=== PATIENT | male | born 1940 | race Caucasian/White ===

== ENCOUNTER 2024-09-16 17:17 | Inpatient (IN) | payer MEDICARE, OTHER, SELFPAY ==
[2024-09-16] VITALS (9 sets, daily range): BP systolic 115–150; BP diastolic 60–102; BMI 32.6
--- NOTE | 2024-09-16 11:56 | W.PN.CARDCBS ---
Today's Communication / Plan
-
Aspirin 243mg precath
LHC today
start statin
GDMT for cardiomyopathy
Impression / Plan
-
This is the H&P summary.
Full H&P scanned into chart.
PCP: Raquel Correia MD
CDY: Jaylen Webster MD
HPI: This is an 84 y/o white male, PMH sig for DM, CKD3a, HLD, HTN, prostate cancer.
Seen in outpt cardiology setting on 09/13 for 1 week history intermittent chest pain radiating to LUE, associated dyspnea, lightheadedness, belching. EKG indicated that he likely suffered an acute MS earlier in the week, with anterior Q waves and
marked anterolateral ST/T wave abnormalities, for which he had not sought urgent medical attention. He was sent to [facility] ER from the office.
First HS troponin was peak at 2165, with corresponding CK 237/MB 13.8. Started on IV Heparin, aspirin. Transferred today for [facility].
Echo 09/13- LVEF 40-45%, distal septal/apical/inferoapical HK
IMPRESSION:
Subacute Anterior MS
Cardiomyopathy
HTN
HLD
Elevated transaminase
DM
CKD3a
Prostate Cancer w/prostatectomy (07/2023)
Meniere's Disease/hearing loss
Cervical disc disease C6-C7 w/radiculopathy
PLAN:
Subacute Anterior MS- likely 1 week ago but delayed treatment
Echo now with cardiomyopathy and decreased EF 40-45%
Started aspirin 81mg- will give 243mg on arrival if not fully loaded
[facility] today
atenolol stopped for toprol xl 25m BID at [facility]- will continue here
Gentle hydration post cath, repeat creat in AM post dye load
Will need GDMT for cardiomyopathy/acute systolic HFrEF- start dapagliflozin 10/daily
Check lipid profile and start high intensity statin therapy- elevated transaminase likely d/t MS
baseline AST 20s, ALT 10s- will repeat in AM. Stop RYR
HgbA1C 7.2%- will need med/insulin adjustment per PCP, start dapagliflozin as noted
Followup w/Dr. Webster at d/c
Progress Note - Waitstaff
Subjective
Date of Service: September 16, 2024
[2024-09-16 12:45] LABS: Glucose - Point of Care 133 mg/dl (70-99)
[2024-09-16] MEDS: LOW STRENGTH ASPIRIN 243 MG PO (14:00)
[2024-09-16] MEDS: ZOFRAN 4 MG IV (14:18)
[2024-09-16 16:33] LABS: ACT-LR - POC 226 Seconds (116-155)
--- NOTE | 2024-09-16 17:00 | PTCARENOTE ---
received patient from computer laboratory technician to room 2256. pt oriented to room and unit. pt brought to bedside. Pt AAOX3. denies chest pain at this time. SR on telemetry heart rate in 60s. pulses palpable. trace lower extremity edema. pt on room air, sat
98%. lung sounds diminished in bases. pt reports mild intermittent nausea. hypoactive bowel sounds. poor appetite. denies urge to void at this time. left arm skin tear noted from [place]. labs drawn and send. admission questions went over with
patient. see worklist for full nursing assessment and interventions.
--- NOTE | 2024-09-16 17:40 | ITS.CL.CATH ---
Quality Improvement Engineer - Catheterization
Cardiac Catheterization
Procedure Report:
LEFT HEART CATHETERIZATION
Date of Procedure: September 16, 2024
Procedures performed:
1: Coronary angiography
2: Left ventricular hemodynamic assessment
Primary Care Physician: Dr. Raquel Correia
Primary Abrasive Mixer Helper: Dr. Jaylen Webster
INDICATION: The patient is an 84-year-old man with a past medical history significant for longstanding diabetes, hypertension and dyslipidemia who presents with a history of having chest pain approximately 9 days ago. On his initial evaluation in
our office last Monday his EKG showed serial changes consistent with an evolving anterior wall MS and he was admitted to [facility] where cardiac enzymes were positive. Echo performed showed depressed LV systolic function. He has been
pain-free over the weekend on a heparin drip and now referred for coronary angiography.
ACCESS: The patient was prepped and draped in usual sterile fashion. A 6 Yi sheath was placed in the right radial artery using the Seldinger over the wire technique.
HEMODYNAMIC FINDINGS (mmHg):
LV(s/d,EDP): 136/12, 23
Ao(s/d,m): 136/63, 86
ANGIOGRAPHIC FINDINGS:
Single-plane Left Ventriculography in SIU Projection: Not done. LV ejection fraction 40 to 45% by echo performed at [facility].
Coronary Angiography:
Dominance: Right
Left Main: Normal, short.
Left Anterior Descending: The left anterior descending artery is a medium to large caliber vessel that gives rise to 1 major diagonal branch. The proximal LAD has a smooth 70% stenosis. The major diagonal branch is patent with normal flow and
appears to be a reasonable surgical target. Just after the diagonal branch takeoff there is a preocclusive hazy 95% mid LAD stenosis with WU II flow in the apical LAD. The distal LAD has moderate luminal irregularities but appears to be a good
surgical target.
Left Circumflex: The left circumflex is a large-caliber nondominant system that gives rise to 2 major obtuse marginal branches. The first obtuse marginal branch has a proximal 80 to 90% stenosis with disease that goes back to the ostium. The mid
and distal vessel have moderate luminal irregularities and appear to be a reasonable surgical target. The distal OM is a relatively large vessel that is widely patent with normal flow and at worst a mid 30% stenosis.
Right Coronary: The right coronary artery is a medium caliber dominant vessel that gives rise to a medium caliber posterior descending artery and small PLV branch system. The mid right coronary artery has a smooth 50 to 60% stenosis. The distal
right coronary artery has a 80% stenosis before the distal bifurcation. Despite this there is normal distal flow.
Fluoroscopy Time (min): 3.8
Radiation Dose (mGy): 379
DAP (Gy.cm2): 25
Closure device: None. A TR band was applied for hemostasis at the right wrist.
Complications: None.
ASSESSMENT:
1: Three-vessel obstructive coronary artery disease with a clear culprit being the mid LAD lesion.
2: Elevated left ventricular filling pressures.
CONCLUSIONS and RECOMMENDATIONS:
1: CT surgical evaluation for CABG given his LV dysfunction, insulin-dependent diabetes, and multivessel obstructive coronary disease. Ideally he would receive a AMATO to the LAD with grafts to the PDA, OM1, and possibly the major diagonal branch.
2: If the patient is felt to be a poor surgical candidate or refuses surgery I would consider multivessel intervention. This would require at least 5 stents.
3: Medical therapy for recent MS, coronary artery disease, hypertension, hyperlipidemia, and diabetes mellitus.
Cassidy Berkowitz M.D.
Copy to: Dr. Raquel Correia
[2024-09-16 17:50] LABS: Hematocrit 37.6 % (39.0-52.0); Mean Corp Hgb Conc. 34.6 g/dL (33.0-37.0); Mean Corpuscular Hgb 31.9 pg (27.0-31.0); Mean Corpuscular Volume 92.4 fL (80.0-94.0); Mean Platelet Volume 10.5 fL (7.4-10.4); Platelet Count 193 10^3/uL (130-400); Red Blood Cell Count 4.07 10^6/uL (4.70-6.10); Red Cell Dist. Width 12.7 % (11.5-14.5); White Blood Cell Count 7.9 10^3/uL (4.8-10.8)
[2024-09-16 18:02] LABS: APTT 129.2 Sec (23.4-35.0)
[2024-09-16] MEDS: GLUCOTROL 5 MG PO (18:07)
[2024-09-16] MEDS: LIPITOR 40 MG PO (18:07)
--- NOTE | 2024-09-16 18:11 | CONSULT.CT ---
Addendum entered and electronically signed by Zbigniew William MD 09/18/24 06:44:
I saw and examined the patient.
The OCCUPATIONAL HEALTH NURSE MANAGER's note was reviewed and I agree with the note.
Comment:
I met with Mr. Souza at the bedside. We reviewed his HPI. He tells me he had approximately 1 week of chest pain that became progressively worse which lead him to his PCP who referred him to cardiology who immediately referred him to the ED. He
was found to have an NSTEMI and underwent LHC which revealed multi vessel CAD. I discussed and illustrated his lesions and conduct for surgery. We reviewed the risks and benefits. Despite his age, he is quite functional, and I believe he would
benefit from complete revascularization. Plan is for CABG + SAILAJA Clip with me on . All questions were answered to his satisfaction and to the best of my ability, consent was obtained.
Original Note:
Consultation
-
Date/Time Consultation Requested: 09/16/24
Date/Time Consultation Performed: 09/16/24
Requesting Provider: Dr. Merritt Berkowitz
Performing Provider: Deisy AVILA for Oziel Bertram MYRICK
Reason for Consultation: CABG evaluation
Patient History
Physicians
Family Physician: Raquel Correia
Outpatient Street Cleaning Equipment Operator: Troy Santiago MD
Inpatient Street Cleaning Equipment Operator: Merritt Berkowitz MD>[facility] consult
History of Present Illness
84-year-old male with past medical history significant for hypertension, hyperlipidemia, diabetes, class I obesity, CKD 3a, was seen in outpatient cardiology 09/13 for complaint of 1 week history of 3 episodes midsternal chest pain
radiating to left upper extremity, associated with dyspnea. Ruled in for [facility] by ECG with anterior Q waves and marked anterolateral ST/T wave abnormalities, for which he had not sought urgent medical attention. Patient sent to [facility]
where First HS troponin was peak at 2165, with corresponding CK 237/MB 13.8. Patient was transferred to [facility] on 09/16/2024 for left heart cath which reported triple-vessel coronary disease. CT surgery is consulted for CABG evaluation.
Pertinent negatives: Denies CVA/TIA, asthma/COPD, hepatitis, surgery/radiation to thorax, lower extremity vein stripping, dysphagia
Past Medical History
Past Medical History: Cancer (Prostate cancer w/ prostatectomy 2023), GERD, HTN, Hypercholesterolemia, NIDDM (20+ years), Renal Insufficiency (CKD3a) and Other (M�ni�re's disease with hearing loss; DJD bilateral knees, C 6-7 disc disease with
radiculopathy, right lower extremity phlebitis (in his 20s); class I Obesity; chronic constipation)
Past Surgical History
Past Surgical History: Orthopedic (Left rotator cuff repair) and Other (Vocal cord injections; benign polypectomy)
Family History
Mother: at Age (96)
Father: at Age
Family Medical History: CAD
Social History
Alcohol: None
Drug: None
Tobacco: Non-Smoker
Personal:
Living: With Spouse
Employment: Retired ([employer])
Allergies
Allergy/AdvReac Type Severity Reaction Status Date / Time
atorvastatin [From Lipitor] Allergy Rash Verified 09/16/24 12:29
ciprofloxacin [From Cipro] Allergy Rash Verified 09/16/24 12:29
ezetimibe [From Zetia] Allergy Rash Verified 09/16/24 12:29
morphine Allergy severe Verified 09/16/24 12:29
Nausea /
Vomiting
simvastatin [From Zocor] Allergy Rash Verified 09/16/24 12:29
sitagliptin [From Januvia] Allergy myalgia,joint Verified 09/16/24 12:29
pain
Sulfa (Sulfonamide Allergy Rash/vomiti Verified 09/16/24 12:29
Antibiotics) ng
sulfamethoxazole Allergy Hives Verified 09/16/24 12:29
[From Bactrim]
trimethoprim [From Bactrim] Allergy Hives Verified 09/16/24 12:29
Home Medications
�Medication �Instructions �Recorded �Confirmed �Type
acetaminophen 650 mg 1,300 mg PO Q12H PRN pain 09/16/24 09/16/24 History
tablet,extended release (Tylenol
Arthritis Pain)
amlodipine 5 mg tablet 5 mg PO BID 09/16/24 09/16/24 History
atenolol 25 mg tablet 25 mg PO BID 09/16/24 09/16/24 History
calcium carbonate (Calcium 600) 1,200 mg PO DAILY 09/16/24 09/16/24 History
celecoxib 200 mg capsule 200 mg PO DAILY 09/16/24 09/16/24 History
cholecalciferol (vitamin D3) 50 50 mcg PO DAILY 09/16/24 09/16/24 History
mcg (2,000 unit) capsule
cyanocobalamin (vitamin B-12) 1,000 mcg PO DAILY 09/16/24 09/16/24 History
1,000 mcg tablet (Vitamin B-12)
diazepam 2 mg tablet 2 mg PO HS PRN vertigo 09/16/24 09/16/24 History
famotidine 40 mg tablet 40 mg PO BID 09/16/24 09/16/24 History
ferrous sulfate 27 mg iron tablet 27 mg PO DAILY 09/16/24 09/16/24 History
glipizide 10 mg tablet 10 mg PO DAILY 09/16/24 09/16/24 History
glipizide 5 mg tablet 5 mg PO HS 09/16/24 09/16/24 History
hydrochlorothiazide 12.5 mg tablet 12.5 mg PO DAILY 09/16/24 09/16/24 History
insulin aspart U-100 100 unit/mL 5 unit SC HS 09/16/24 09/16/24 History
(3 mL) subcutaneous pen
insulin degludec 100 unit/mL (3 14 unit SC DAILY 09/16/24 09/16/24 History
mL) subcutaneous pen (Tresiba
FlexTouch U-100 insulin)
loratadine 10 mg tablet 10 mg PO HS 09/16/24 09/16/24 History
pioglitazone 30 mg tablet 30 mg PO HS 09/16/24 09/16/24 History
polyethylene glycol 3350 17 4 g PO DAILY 09/16/24 09/16/24 History
gram/dose oral powder
psyllium husk 3.4 gram/5.4 gram 1 tsp PO DAILY 09/16/24 09/16/24 History
oral powder (Metamucil)
red yeast rice 600 mg tablet 1,200 mg PO BID 09/16/24 09/16/24 History
solifenacin 10 mg tablet 10 mg PO DAILY 09/16/24 09/16/24 History
triamcinolone acetonide 0.1 % 1 applic topical BID 09/16/24 09/16/24 History
topical cream
Review of Systems
-
History Source: Patient and Transfer Record
General: Reports No Symptoms
HEENT: Reports Other (Eating less)
Respiratory: Reports No Symptoms
Cardiac: Reports Chest Pain (Currently resolved)
Abdomen/GI: Reports Nausea
: Reports No Symptoms
Musculoskeletal: Reports Joint Pain (Bilateral knees)
Skin: Reports No Symptoms
Neurological: Reports No Symptoms
Vascular: Reports No Symptoms
Physical Exam
Vital Signs
Temp 98.3 F 09/16/24 17:27
Temp route: Oral 09/16/24 17:27
Pulse 65 09/16/24 17:16
Resp Rate 18 09/16/24 17:27
Blood pressure 140/61 09/16/24 17:16
Blood pressure extremity used: Left upper arm 09/16/24 17:27
Position: Lying 09/16/24 17:27
MAP (cuff-James Monitor) 84 09/16/24 17:16
SaO2 98 09/16/24 17:27
Oxygen Mode of Delivery Room air 09/16/24 17:27
Actual Weight 102.9 kg 09/16/24 12:28
Body Mass Index (BMI) 32.6 09/16/24 12:28
Labs
03/31/25 17:43
Diagnostic Studies
Left heart catheterization (right radial by Dr. Berkowitz) 09/16:
Left Main: Normal, short.
Left Anterior Descending: Proximal LAD has a smooth 70% stenosis. The major diagonal branch is patent with normal flow and appears to be a reasonable surgical target. Just after the diagonal branch takeoff there is a preocclusive hazy 95% mid LAD
stenosis with WU II flow in the apical LAD. The distal LAD has moderate luminal irregularities but appears to be a good surgical target.
Left Circumflex: Proximal OM1 80-90% stenosis with disease that goes back to the ostium. The mid and distal vessel have moderate luminal irregularities and appear to be a reasonable surgical target. The distal OM is a relatively large vessel that
is widely patent with normal flow and at worst a mid 30% stenosis.
Right Coronary: 50-60% mid RCA stenosis. The distal right coronary artery has a 80% stenosis before the distal bifurcation.
Echo 09/13:
LVEF 40-45%, distal septal/apical/inferoapical HK
Exam
General: Well Developed, Well Nourished, No Apparent Distress and Comfortable
HEENT: Normocephalic, Anicteric, Moist Mucous Membranes and PERRLA
Neck: Trachea Midline
Respiratory: Clear
Cardiac: S1/S2 and Regular Rhythm
GI: Soft, Non Tender, Non Distended and Normal Bowel Sounds
Rectal: Deferred by Provider
Skin: Warm and Dry
Neuro: AO x 3, No Motor Deficits and Nonfocal/Grossly Intact
Extremities: Pulses (+2/4 DP pulses B/L)
Lymph: No Lymphadenopathy
Psych: Calm
Assessment / Plan
-
84-year-old male transferred from [facility] on 09/16/24 with subacute anterior STEMI likely 1 week prior to admission. Left heart cath reveals triple-vessel coronary disease and ischemic cardiomyopathy with a EF of 40-45%. Past medical
history significant for hypertension, hyperlipidemia, obesity, diabetes, CKD 3A.
-Surgeon to review imaging and discuss risk-benefit with patient and family
-Preop cardiac surgery diagnostics ordered
-Would benefit from diabetes OCCUPATIONAL HEALTH NURSE MANAGER management while hospitalized
Data Reviewed
-
EKG: Report Reviewed by me and Discussed with Physician
Home Delivery Driver: Report Reviewed by me and Discussed with Physician
Echo: Discussed with Physician
Radiology: Report Reviewed by me and Discussed with Physician
Labs: Labs Reviewed by me and Discussed with Physician
Old Records: Reviewed
--- NOTE | 2024-09-16 18:44 | PTCARENOTE ---
LORETTA AZAR stated okay to draw type and screen in AM since labs were already drawn and sent.
[2024-09-16] MEDS: HEPARIN 25000 UNITS/250 ML IV (19:56)
[2024-09-16] MEDS: NORVASC 5 MG PO (20:00)
[2024-09-16] MEDS: TOPROL XL 25 MG PO (20:00)
[2024-09-16] MEDS: PEPCID 40 MG PO (20:00)
[2024-09-16] MEDS: CLARITIN 10 MG PO (21:39)
[2024-09-16] MEDS: ACTOS 30 MG PO (21:39)
[2024-09-16 21:43] LABS: Glucose - Point of Care 116 mg/dl (70-99)
--- NOTE | 2024-09-16 22:52 | PTCARENOTE ---
Patient received from previous RN resting in the bed. Denies chest pain. Right radial cath site with gauze and tegaderm C/D/I. Radial pulse palpable. SR with first degree AV block on tele. Heparin gtt infusing at 1000units/hr. Oxygen saturation 94%
on room air. Patient offers no complaints at this time. Plan of care discussed. Call izaguirre within reach. Care ongoing
[2024-09-17] VITALS (10 sets, daily range): BP systolic 130–150; BP diastolic 57–90; BMI 31.6
[2024-09-17 03:38] LABS: Hematocrit 35.7 % (39.0-52.0); Hemoglobin 12.2 g/dL (13.0-18.0); INR 1.09; Mean Corp Hgb Conc. 34.2 g/dL (33.0-37.0); Mean Corpuscular Volume 93.7 fL (80.0-94.0); Mean Platelet Volume 11.3 fL (7.4-10.4); PT 14.4 Sec (11.4-14.6); Platelet Count 176 10^3/uL (130-400); Red Blood Cell Count 3.81 10^6/uL (4.70-6.10); Red Cell Dist. Width 12.8 % (11.5-14.5)
[2024-09-17 03:39] LABS: APTT 47.4 Sec (23.4-35.0)
[2024-09-17 03:52] LABS: ALT (SGPT) 19 U/L (0-50); AST (SGOT) 31 U/L (17-59); Albumin 3.7 g/dl (3.5-5.0); Alkaline Phosphatase 74 U/L (38-126); Blood Urea Nitrogen 24 mg/dl (9-20); Calcium 9.6 mg/dl (8.4-10.2); Carbon Dioxide 25 mmol/L (22-30); Chloride 107 mmol/L (98-107); Direct Bilirubin 0.3 mg/dl (0.0-0.4); Estimated Creatinine Clearance 60 ml/min; Glucose 118 mg/dl (70-99); HDL Cholesterol 45 mg/dl; LDL Cholesterol, Calculated 113 mg/dl; Magnesium 1.8 mg/dl (1.6-2.3); Potassium 4.2 mmol/L (3.5-5.1); Sodium 141 mmol/L (135-145); Total Bilirubin 1.7 mg/dl (0.2-1.3); Total Cholesterol 186 mg/dl (50-199); Total Protein 6.3 g/dl (6.3-8.2); Triglyceride 140 mg/dl (10-149); Very Low Density Lipoprotein 28 mg/dl (0-30); eGFR > 60.00
[2024-09-17 08:25] LABS: Glucose - Point of Care 136 mg/dl (70-99)
[2024-09-17] MEDS: NORVASC 5 MG PO ×2 (08:27→19:50)
[2024-09-17] MEDS: DETROL LA 4 MG PO (08:27)
[2024-09-17] MEDS: LOW STRENGTH ASPIRIN 81 MG PO (08:28)
[2024-09-17] MEDS: PEPCID 40 MG PO ×2 (08:28→19:51)
[2024-09-17] MEDS: GLUCOTROL 10 MG PO (08:28)
[2024-09-17] MEDS: TOPROL XL 25 MG PO ×2 (08:29→19:51)
[2024-09-17] MEDS: NOVOLOG FLEXPEN-MODERATE RESISTANCE SC ×3 (08:29→16:47)
[2024-09-17] MEDS: LANTUS 0.14 UNITS SC (08:30)
[2024-09-17 09:44] LABS: Glycohemoglobin (HgbA1c) 6.7 % (4.0-5.6)
[2024-09-17 11:32] LABS: APTT 62.9 Sec (23.4-35.0)
--- NOTE | 2024-09-17 11:45 | W.PN.CARDCBS ---
Addendum entered and electronically signed by Elliot Khoury MD 09/17/24 13:40:
Attending addendum: Patient seen and examined. PA note reviewed and findings confirmed by me. He has been feeling well. No chest pain. Poor appetite and chronic 'sensitive stomach'.
IMPRESSION:
-Multivessel coronary artery disease with subacute anterior wall myocardial infarction
-Ischemic cardiomyopathy
-Hypertension
-Hyperlipidemia
-Diabetes
RECOMMENDATIONS:
-Awaiting CT surgical evaluation
-Continue amlodipine 5 mg p.o. twice daily
-Toprol XL will increase to 50 mg p.o. twice daily with hold parameters
-Eventual ROGELIO/ARB given LV dysfunction and DM
Original Note:
Today's Communication / Plan
-
Continue aspirin, IV heparin, statin, Toprol, Norvasc
CT surgical evaluation underway
Diabetic STAFF RESPIRATORY THERAPIST consult
Impression / Plan
-
This is the H&P summary.
Full H&P scanned into chart.
PCP: Raquel Correia MD
CDY: Jaylen Webster MD
HPI: This is an 84 y/o white male, PMH sig for DM, CKD3a, HLD, HTN, prostate cancer.
Seen in outpt cardiology setting on 09/13 for 1 week history intermittent chest pain radiating to LUE, associated dyspnea, lightheadedness, belching. EKG indicated that he likely suffered an acute OK earlier in the week, with anterior Q waves and
marked anterolateral ST/T wave abnormalities, for which he had not sought urgent medical attention. He was sent to [facility] ER from the office.
First HS troponin was peak at 2165, with corresponding CK 237/MB 13.8. Started on IV Heparin, aspirin. Transferred today for [facility].
IMPRESSION:
Subacute Anterior OK
Ischemic cardiomyopathy, EF 40-45%
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
HTN
HLD
DM
CKD3a
Prostate Cancer w/prostatectomy (07/2023)
Meniere's Disease/hearing loss
Cervical disc disease C6-C7 w/radiculopathy
Echo 09/13- LVEF 40-45%, distal septal/apical/inferoapical HK
PLAN:
-Patient was admitted to [facility] initially with evidence of subacute anterior OK and transferred to [facility] for cardiac catheterization completed 09/16/2024. Cath showed three-vessel obstructive coronary disease with clear
culprit being mid LAD lesion.
-CT surgical evaluation underway
-Echo at [facility] with new EF 40 to 45%
-Continue aspirin, IV heparin
-Remains pain-free
-Continue Toprol (transitioned from atenolol while at [facility]), Norvasc
-Continue guideline directed medical therapy for cardiomyopathy/CHF. Holding on ROGELIO/ARB/ARNI/Aldactone at present given plans for upcoming surgery
-In sinus rhythm on review of telemetry overnight
-LDL 113. Continue Lipitor 40 mg every afternoon. LFTs were transiently elevated at [place], likely due to OK and improved
-Hemoglobin A1c 7.2%. Stop Actos. Would plan to start Farxiga when okay per surgery. diabetic STAFF RESPIRATORY THERAPIST consult
-Followup w/Dr. Webster, ATC at d/c
-d/w patient and family at bedside. d/w CT surgery STAFF RESPIRATORY THERAPIST
Progress Note - Strategy Specialist
Subjective
Date of Service: September 17, 2024
No pain or issues overnight
Objective
Labs:
09/17/24 02:05
09/17/24 02:05
Labs
Hgb 12.2 g/dL (13.0-18.0) L 09/17/24 02:05
Hct 35.7 % (39.0-52.0) L 09/17/24 02:05
Plt Count 176 10^3/uL (130-400) 09/17/24 02:05
PT 14.4 Sec (11.4-14.6) 09/17/24 02:05
INR 1.09 09/17/24 02:05
APTT 62.9 Sec (23.4-35.0) H 09/17/24 11:08
Sodium 141 mmol/L (135-145) 09/17/24 02:05
Potassium 4.2 mmol/L (3.5-5.1) 09/17/24 02:05
BUN 24 mg/dl (9-20) H 09/17/24 02:05
Creatinine 1.1 mg/dL (0.7-1.3) 09/17/24 02:05
Glucose 118 mg/dl (70-99) H 09/17/24 02:05
Vital Signs and I&O:
Vital Signs
Temp Pulse Resp BP Pulse Ox
97.9 F 70 18 131/65 98
09/17/24 07:40 09/17/24 07:39 09/17/24 07:40 09/17/24 07:39 09/17/24 07:40
Vital Signs
Temp Pulse Resp BP Pulse Ox
97.9 F 70 18 131/65 98
09/17/24 07:40 09/17/24 07:39 09/17/24 07:40 09/17/24 07:39 09/17/24 07:40
Intake & Output
09/15/24 09/16/24 09/17/24 09/18/24
07:59 07:59 07:59 07:59
Intake Total 480 / 480
Balance 480 / 480
Physical Exam
Physical Exam
GEN: No distress, awake, alert, oriented x3
HEENT: supple, anicteric, mmm, EOMI
LUNGS: CTA bilaterally, no wheezes/rales
CV: Reg, S1/S2, no murmur
ABD: soft, BS+, NT/ND
EXT: No cyanosis, clubbing, Edema
NEURO: Gross non-focal
SKIN: warm, pink, dry. No rash. R wrist site c/d/i. thin skin. LUE dressing in place.
--- NOTE | 2024-09-17 12:25 | CM ---
Chart reviewed. Patient is independent of ADLS, lives with his in a 2 STH, 3 VINI, 0 DME has stair glide and walk in shower. Plan is for the patient to return home. CM to follow
--- NOTE | 2024-09-17 13:12 | W.PN.UPDATE ---
Update Note
Progress Note Update
Patient added for CABG with Dr. William on September. Consent obtained. Continue ongoing pre-op work up, STS risk score to follow.
[2024-09-17 14:14] LABS: Glucose - Point of Care 133 mg/dl (70-99)
--- NOTE | 2024-09-17 14:20 | PN.DE.MGMTRT ---
Insulin Management
- -
09/16/24 Diabetes Management Consult
Patient admitted 09/16 from [facility] for chest pain. PMH Prostatitis, malignant neoplasm prostate, neuropathy, elevated LFT's, HCL, Menieres disease, sb CKD. Prior to admission was taking Actos 30 mg @ HS, degludec 14 units daily, 10 mg
Glipizide in AM and 5 mg @ HS. ~ 1 1/2 weeks ago was started on aspart before dinner.
Patient is awake alert and oriented able to discuss diabetes care. Family at bedside and supportive. Patient states he sees Dr. Segura, endocrine for ongoing diabetes management. He has a Liz CGM. He states since starting the aspart pre
dinner has had several low blood sugars.
Currently receiving glipizide 10 mg in AM and 5 mg with dinner, lantus 14 units in AM and moderate corrective insulin. Glucose range 116 to 136. Will make no change to current regimen.
Patient for CABG with Dr. William 09/19.
Will not restart Actos.
Discussed with nurse.
Will follow.
Diabetes History
- -
Type of Diabetes: 2 requiring insulin
Pre-Admission Diabetes Regimen
09/17/24
02:05
Creatinine 1.1
Lab Results
Hemoglobin A1c 6.7 % (4.0-5.6) H 09/17/24 02:05
Insulin Pump Settings
IP Diabetes Regimen
09/16/24 09/17/24 09/17/24
21:42 02:05 08:24
Glucose 118 H
POC Glucose 116 H 136 H
09/17/24
14:12
Glucose
POC Glucose 133 H
Meal type: Breakfast
Meal type: Dinner
Amount consumed: 75%
Amount consumed: 50%
Patient Education
--- NOTE | 2024-09-17 15:55 | WOUNDNOTE ---
[facility] RN note: Patient admitted for cardiac catheterization.
See H&P for complete history.
PMH:NIDDM,WI,CAD,HTN and Prostate cancer.
Wound Location and type/assessment: Patient admitted with: L arm skin care that he reports had on admission. Very fragile skin on forearm with bruising, small skin tear in center. L upper chest with dried up small skin tear. Nurse Eloise assisted
with care and confirmed that sacrum and heels are intact.
Appetite: Good.
Pressure redistribution devices in place: On Air mattress. Pillow under calves
Plan: Local wound care for skin tears.
Will confirm orders with hospitalist and updated nurse.
Updated care plan and will follow as needed.
Note to case management of equipment requested for discharge:None
Recommend follow up at wound care center upon discharge.
[2024-09-17 16:38] LABS: Glucose - Point of Care 107 mg/dl (70-99)
[2024-09-17] MEDS: LIPITOR 40 MG PO (16:54)
[2024-09-17] MEDS: HEPARIN 25000 UNITS/250 ML IV (16:54)
[2024-09-17] MEDS: GLUCOTROL 5 MG PO (16:54)
--- NOTE | 2024-09-17 17:32 | W.PN.UPDATE ---
Update Note
Progress Note Update
Procedure Type:�Isolated CABG
Perioperative Outcome Estimate %
Operative Mortality 3.05%
Morbidity & Mortality 9.59%
Stroke 1.28%
Renal Failure 2.71%
Reoperation 1.79%
Prolonged Ventilation 5.07%
Deep Sternal Wound Infection 0.291%
Long Hospital Stay (>14 days) 7.32%
Short Hospital Stay (<6 days)* 29.6%
Clinical Summary
Planned Surgery: Isolated CABG, Urgent, First cardiovascular surgery
Demographics: 84 year old, White, male, 103kg, 178cm, BMI: 32.5 kg/m�
Lab Values: Creatinine: 1.1 mg/dL, Hematocrit: 35.7%, WBC Count: 8 10�/�L, Platelet Count: 920089 cells/�L
PreOp Medications: Insulin diabetes control
Substance Abuse: Never smoker
Risk Factors / Comorbidities: Insulin-dependent Diabetes Mellitus, Hypertension
Coronary Artery Disease: 3 vessels diseased, Proximal LAD Stenosis >=70%, STEMI, ME: 1 to 7 Days
[2024-09-17 18:28] LABS: APTT 85.2 Sec (23.4-35.0)
--- NOTE | 2024-09-17 21:18 | PTCARENOTE ---
Received pt @ change of shift. AAOx3. VSS. Heparin gtt running @ 1400 units/hr through left forearm. Discussed plan of care for evening. Pt verbalized understanding. Call izaguirre within reach.
[2024-09-17 22:07] LABS: Glucose - Point of Care 120 mg/dl (70-99)
[2024-09-17] MEDS: CLARITIN 10 MG PO (22:08)
[2024-09-18 01:31] VITALS: BP 147/63
[2024-09-18 01:39] LABS: Hematocrit 36.5 % (39.0-52.0); Hemoglobin 12.7 g/dL (13.0-18.0); Mean Corp Hgb Conc. 34.8 g/dL (33.0-37.0); Mean Corpuscular Hgb 31.8 pg (27.0-31.0); Mean Corpuscular Volume 91.5 fL (80.0-94.0); Mean Platelet Volume 10.5 fL (7.4-10.4); Platelet Count 183 10^3/uL (130-400); Red Blood Cell Count 3.99 10^6/uL (4.70-6.10); Red Cell Dist. Width 12.7 % (11.5-14.5); White Blood Cell Count 7.8 10^3/uL (4.8-10.8)
[2024-09-18 01:53] LABS: APTT 99.4 Sec (23.4-35.0)
[2024-09-18 03:19] LABS: Blood Urea Nitrogen 26 mg/dl (9-20); Calcium 9.9 mg/dl (8.4-10.2); Carbon Dioxide 21 mmol/L (22-30); Chloride 107 mmol/L (98-107); Estimated Creatinine Clearance 51 ml/min; Glucose 99 mg/dl (70-99); Potassium 4.2 mmol/L (3.5-5.1); Sodium 142 mmol/L (135-145); eGFR 54.51
--- NOTE | 2024-09-18 04:33 | W.PN.CT ---
Today's Communication / Plan
-
Plan:
-Cont. current medical management per primary team
-Cont. current meds (ASA, Heparin gtt, Lipitor, Toprol XL, Insulin)
-Avoid ROGELIO-I, ARBs, CCB at least 48 hrs prior to CABG; placed Norvasc on hold
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
-For CABG/SAILAJA clip by Dr. William tomorrow, 09/19/24
-Will cont. to closely monitor
Assessment / Plan
-
Assessment:
-Subacute Anterior IN
-[place]
-Ischemic cardiomyopathy, EF 40-45%
-MV CAD by cath with culprit mid LAD lesion
-HTN
-HLD
-T2DM (hgb A1C 6.7, on insulin)
-Class 1 obesity (BMI 31.6)
-CKD3a
-Prostate Cancer S/P prostatectomy (07/2023)
-Meniere's Disease/hearing loss
-Cervical spine disease C6-C7 w/radiculopathy
-S/P vocal cord injection for laryngitis/hoarseness
-S/P Left rotator cuff repair
-S/P bilateral cataracts
Discussed patient care with: Cardiology, Nursing, Respiratory Therapy, Pharmacy and Care Team
Subjective
-
Date of Service: September 18, 2024
No issues overnight. Denies CP/SOB
Objective Data
-
Lab Results
09/18/24 01:30
09/18/24 01:30
PT 14.4 Sec (11.4-14.6) 09/17/24 02:05
INR 1.09 09/17/24 02:05
APTT 99.4 Sec (23.4-35.0) H 09/18/24 01:30
Vital Signs
Vital Signs
Temp Pulse Resp BP Pulse Ox
97.7 F 59 20 147/63 97
09/17/24 23:22 09/18/24 02:00 09/17/24 23:22 09/18/24 01:31 09/17/24 23:22
SaO2: 97 (RA)
Physical Exam
-
General: Awake, Oriented and AOx3
Cardiovascular: Regular rate & rhythm and No Murmurs
Respiratory: Clear
Extremities: Other (+trace edema)
Data Reviewed
-
Lab Results: Results Reviewed
Medications: Active Meds Reviewed
Chest X-Ray: Report Reviewed and Image Reviewed
ECG: Report Reviewed and Image Reviewed
--- NOTE | 2024-09-18 07:14 | PN.DE.MGMTRT ---
Insulin Management
- -
09/18/24 Diabetes Management Consult Follow up
Patient admitted [facility] for [facility] pain. PMH Prostatitis, malignant neoplasm prostate, neuropathy, elevated LFT's, HCL, Meniere's disease, 3b CKD. Prior to admission was taking Actos 30 mg @ HS, degludec 14 units daily, 10 mg
Glipizide in AM and 5 mg @ HS. ~ 1 1/2 weeks ago was started on aspart before dinner. A1C 6.7, cr 1.1, eGFR > 60
Patient is awake alert and oriented able to discuss diabetes care. Family at bedside and supportive. Patient states he sees Dr. Segura, endocrine for ongoing diabetes management. He has a Liz CGM. He states since starting the aspart pre
dinner has had several low blood sugars.
Currently receiving glipizide 10 mg in AM and 5 mg with dinner, lantus 14 units in AM and moderate corrective insulin. Glucose range 107 to 136. CR 1.3, eGFR 54.51. Will make no change to current regimen.
Patient for CABG with Dr. William 09/19.
Will not restart Actos.
Discussed with nurse.
Will follow.
Diabetes History
- -
Type of Diabetes: 2 requiring insulin
Pre-Admission Diabetes Regimen
09/18/24
01:30
Creatinine 1.3
Lab Results
Hemoglobin A1c 6.7 % (4.0-5.6) H 09/17/24 02:05
Insulin Pump Settings
IP Diabetes Regimen
09/17/24 09/17/24 09/17/24
08:24 14:12 16:37
Glucose
POC Glucose 136 H 133 H 107 H
09/17/24 09/18/24
22:05 01:30
Glucose 99
POC Glucose 120 H
Meal type: Dinner
Meal type: Lunch
Meal type: Breakfast
Amount consumed: 100%
Amount consumed: 100%
Amount consumed: 75%
Patient Education
[2024-09-18 07:51] VITALS: BP 140/65
[2024-09-18 08:04] LABS: Glucose - Point of Care 127 mg/dl (70-99)
--- NOTE | 2024-09-18 09:58 | W.PN.CARDCBS ---
Addendum entered and electronically signed by Myles Wang MD 09/18/24 11:06:
Patient seen, interviewed and examined by me.
Well-appearing, no acute distress
Regular rate and rhythm with normal S1 and S2, no S3 no S4. There is a grade 1/6 apical holosystolic murmur and no rubs. PMI is normally placed.
Lungs are clear to auscultation bilaterally without wheezes rales or rhonchi.
Abdomen soft nontender nondistended with normoactive bowel sounds
Extremities show trace pretibial edema bilaterally no clubbing or cyanosis.
Neurologic exam is grossly nonfocal.
IMPRESSION:
Subacute Anterior HI
Ischemic cardiomyopathy, EF 40-45%
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
HTN
HLD
DM
CKD3a
Prostate Cancer w/prostatectomy (07/2023)
Meniere's Disease/hearing loss
Cervical disc disease C6-C7 w/radiculopathy
Echo 09/13- LVEF 40-45%, distal septal/apical/inferoapical HK
PLAN:
Patient was admitted to [facility] with subacute anterior HI and transferred to [facility] where cardiac catheterization 09/16/2024 demonstrated 3V obstructive CAD with culprit mid LAD lesion.
He has undergone CT surgical evaluation and is awaiting CABG planned for 09/19/24.
There has been no recurrence of chest pain on continued medical therapy.
Continue:
Intravenous heparin
Aspirin 81 mg daily
Metoprolol succinate 25 mg twice daily
Amlodipine 5 mg twice daily
Atorvastatin 40 mg daily
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
Echo at [facility] with new EF 40 to 45%
Continue guideline directed medical therapy for cardiomyopathy/CHF as able.
Continue Toprol-XL 25 mg twice daily
Holding on ROGELIO/ARB/ARNI/Aldactone at present given plans for upcoming surgery. Will add post op as able
Hemoglobin A1c 7.2%. Actos stopped. Would plan to start Farxiga when okay per surgery. 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
Eventual outpatient follow up w/Dr. Eleanor ATC at d/c
Addendum entered and electronically signed by Marimar Allen PA-C 09/18/24 10:37:
.
Original Note:
Today's Communication / Plan
-
for CABG 09/19
Impression / Plan
-
PCP: Raquel Correia MD
CDY: Jaylen Webster MD
IMPRESSION:
Subacute Anterior HI
Ischemic cardiomyopathy, EF 40-45%
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
HTN
HLD
DM
CKD3a
Prostate Cancer w/prostatectomy (07/2023)
Meniere's Disease/hearing loss
Cervical disc disease C6-C7 w/radiculopathy
Echo 09/13- LVEF 40-45%, distal septal/apical/inferoapical HK
PLAN:
-Patient was admitted to [facility] initially with evidence of subacute anterior HI and transferred to [facility] for cardiac catheterization completed 09/16/2024. Cath showed three-vessel obstructive coronary disease with clear
culprit being mid LAD lesion.
-awaiting CABG planned for 09/19/24
-Echo at [facility] with new EF 40 to 45%
-Continue aspirin, IV heparin
-no pain overnight
-Continue Toprol (transitioned from atenolol while at [facility]), Norvasc
-Continue guideline directed medical therapy for cardiomyopathy/CHF as able. Holding on ROGELIO/ARB/ARNI/Aldactone at present given plans for upcoming surgery. will add post op as able
-In sinus rhythm on review of telemetry overnight
-LDL 113. Continue Lipitor 40 mg every afternoon. LFTs were transiently elevated at [place], likely due to HI and improved
-Hemoglobin A1c 7.2%. Actos stopped. Would plan to start Farxiga when okay per surgery. 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
-Follow up w/Dr. Webster, ATC at d/c
HPI: This is an 84 y/o white male, PMH sig for DM, CKD3a, HLD, HTN, prostate cancer.
Seen in outpt cardiology setting on 09/13 for 1 week history intermittent chest pain radiating to LUE, associated dyspnea, lightheadedness, belching. EKG indicated that he likely suffered an acute HI earlier in the week, with anterior Q waves and
marked anterolateral ST/T wave abnormalities, for which he had not sought urgent medical attention. He was sent to [facility] ER from the office.
First HS troponin was peak at 2165, with corresponding CK 237/MB 13.8. Started on IV Heparin, aspirin. Transferred today for [facility].
Progress Note - Linen Sorter
Subjective
Date of Service: September 18, 2024
no issues overnight
Objective
Labs:
09/18/24 01:30
09/18/24 01:30
Labs
Hgb 12.7 g/dL (13.0-18.0) L 09/18/24:30
Hct 36.5 % (39.0-52.0) L 09/18/24:30
Plt Count 183 10^3/uL (130-400) 09/18/24 01:30
PT 14.4 Sec (11.4-14.6) 09/17/24 02:05
INR 1.09 09/17/24 02:05
APTT 99.4 Sec (23.4-35.0) H 09/18/24 01:30
Sodium 142 mmol/L (135-145) 09/18/24:30
Potassium 4.2 mmol/L (3.5-5.1) 09/18/24:30
BUN 26 mg/dl (9-20) H 09/18/24:30
Creatinine 1.3 mg/dL (0.7-1.3) 04/02/25 01:30
Glucose 99 mg/dl (70-99) 09/18/24 01:30
Vital Signs and I&O:
Vital Signs
Temp Pulse Resp BP Pulse Ox
98.3 F 66 20 140/65 99
09/18/24 07:52 09/18/24 09:00 09/18/24 07:52 09/18/24 07:51 09/18/24 07:52
Vital Signs
Temp Pulse Resp BP Pulse Ox
98.3 F 66 20 140/65 99
09/18/24 07:52 09/18/24 09:00 09/18/24 07:52 09/18/24 07:51 09/18/24 07:52
Intake & Output
09/16/24 09/17/24 09/18/24 09/19/24
07:59 07:59 07:59 07:59
Intake Total 480 / 480
Balance 480 / 480
Physical Exam
Physical Exam
GEN: No distress, awake, alert, oriented x3
HEENT: supple, anicteric, mmm, EOMI
LUNGS: CTA bilaterally, no wheezes/rales
CV: Reg, S1/S2, no murmur
ABD: soft, BS+, NT/ND
EXT: No cyanosis, clubbing, edema
NEURO: Gross non-focal
SKIN: warm, pink, dry. No rash. R wrist site c/d/i. thin skin.
[2024-09-18] MEDS: NOVOLOG FLEXPEN-MODERATE RESISTANCE SC ×2 (10:07→17:32)
[2024-09-18] MEDS: DETROL LA 4 MG PO (10:08)
[2024-09-18] MEDS: GLUCOTROL 10 MG PO (10:08)
[2024-09-18] MEDS: PEPCID 40 MG PO ×2 (10:08→19:42)
[2024-09-18] MEDS: TOPROL XL 25 MG PO ×2 (10:08→19:42)
[2024-09-18] MEDS: LOW STRENGTH ASPIRIN 81 MG PO (10:08)
[2024-09-18] MEDS: LANTUS 0.14 UNITS SC (10:13)
[2024-09-18 11:23] VITALS: BP 151/67
[2024-09-18] MEDS: HEPARIN 25000 UNITS/250 ML IV (12:20)
--- NOTE | 2024-09-18 12:21 | CM ---
Chart reviewed. Preoperative and postoperative instructions and restrictions discussed with the patient, along with showering guidelines. Gave patient Cardiac Surgery Book. Patient is agreeable to a home visit by CT Transitional RN. Patient
is independent of ADLS, lives with his in a 2 STH, 3 VINI, 0 DME. Patient does have a stair lift and does use it due to the house is older and has steep steps, along with bad knees. Patient also has a walk in shower and shower chair. Plan
is for the patient to return home with CT Transitional RN. CM to follow
[2024-09-18 12:29] LABS: Glucose - Point of Care 163 mg/dl (70-99)
[2024-09-18] MEDS: NOVOLOG FLEXPEN-MODERATE RESISTANCE 1 UNITS SC (12:34)
[2024-09-18 15:30] VITALS: BP 137/60
--- NOTE | 2024-09-18 15:34 | PTCARENOTE ---
Pt noted to be in sinus tachycardia w/ ambulation. Will monitor.
[2024-09-18] MEDS: LIPITOR 40 MG PO (17:33)
[2024-09-18 17:34] LABS: Glucose - Point of Care 149 mg/dl (70-99)
[2024-09-18 19:05] VITALS: BP 142/67
[2024-09-18 21:52] LABS: Glucose - Point of Care 156 mg/dl (70-99)
[2024-09-18] MEDS: CLARITIN 10 MG PO (21:53)
[2024-09-18 22:44] VITALS: BP 149/67
--- NOTE | 2024-09-18 23:00 | PTCARENOTE ---
Received patient at change of shift. SR on the monitor, HR in the 70s. Clipped and CHG bathed pt for surgery tomorrow. Pt aware no eating or drinking after midnight. No complaints from pt at this time, call izaguirre within reach.
[2024-09-19] VITALS (18 sets, daily range): BP systolic 103–152; BP diastolic 54–68; BMI 31.4
[2024-09-19 04:58] LABS: Hematocrit 35.3 % (39.0-52.0); Hemoglobin 11.7 g/dL (13.0-18.0); Mean Corp Hgb Conc. 33.1 g/dL (33.0-37.0); Mean Corpuscular Hgb 31.3 pg (27.0-31.0); Mean Corpuscular Volume 94.4 fL (80.0-94.0); Mean Platelet Volume 10.7 fL (7.4-10.4); Platelet Count 155 10^3/uL (130-400); Red Blood Cell Count 3.74 10^6/uL (4.70-6.10); Red Cell Dist. Width 12.5 % (11.5-14.5); White Blood Cell Count 6.4 10^3/uL (4.8-10.8)
[2024-09-19 05:13] LABS: APTT 128.6 Sec (23.4-35.0)
[2024-09-19 05:45] LABS: Glucose - Point of Care 112 mg/dl (70-99)
[2024-09-19] MEDS: PROTONIX 40 MG PO (05:54)
[2024-09-19] MEDS: LOPRESSOR 25 MG PO (05:56)
[2024-09-19] MEDS: BACTROBAN 2% OINTMENT 1 APPLIC NASAL ×2 (05:57→19:58)
[2024-09-19] MEDS: MAGNESIUM OXIDE 500 MG PO (05:57)
[2024-09-19 06:00] LABS: Blood Urea Nitrogen 26 mg/dl (9-20); Calcium 9.6 mg/dl (8.4-10.2); Carbon Dioxide 25 mmol/L (22-30); Chloride 108 mmol/L (98-107); Estimated Creatinine Clearance 51 ml/min; Glucose 99 mg/dl (70-99); Potassium 3.9 mmol/L (3.5-5.1); Sodium 140 mmol/L (135-145); eGFR 54.51
--- NOTE | 2024-09-19 06:15 | W.CVOR.SURPR ---
CVOR Surgeon Immed Pre Op
-
I have examined this patient prior to performance of the scheduled procedure.
The patient's condition is unchanged from the time of the dictated/written History and
Physical and the patient is able to undergo the scheduled procedure.
CABG + SAILAJA Clip
[2024-09-19 07:21] LABS: Urine Albumin 1+ (Neg - Trace); Urine Bilirubin Negative (Negative); Urine Character Clear (Clear); Urine Color Yellow; Urine Glucose Negative (Negative); Urine Ketone 1+ (Negative); Urine Leukocyte Negative (Negative); Urine Nitrite Negative (Negative); Urine Occult Blood 4+ (Negative); Urine Urobilinogen Negative (Neg - 1+)
[2024-09-19 07:40] LABS: ACT+ - POC 104 Seconds (82-134)
[2024-09-19 08:37] LABS: Urine Bacteria Few (Negative); Urine Red Blood Cell 40-50 /HPF (0-2)
[2024-09-19 08:49] LABS: ACT+ - POC 471 Seconds (82-134)
[2024-09-19 09:03] LABS: B.E. - POC -0.5 mmol/L; Glucose - POC 122 mg/dl (70-99); HCO3 - POC 24 mmol/L (21-28); Hematocrit - POC 33 % PCV (42-52); Hemodilution- POC No; Hemoglobin Calculated - POC 11.1; Ionized Calcium - POC 1.22 mmol/L (1.15-1.33); Lactate - POC 0.48 mmol/L (0.36-0.75); O2 Saturation %Calculated-POC 99.5 % (94-98); PCO2 - POC 40 mmHg (35-48); PO2 - POC 167 mmHg (83-108); Potassium - POC 3.5 mmol/L (3.5-5.1); Sodium - POC 142 mmol/L (136-145); Specimen Type - POC Arterial; pH - POC 7.39 (7.35-7.45)
[2024-09-19 09:14] LABS: ACT+ - POC 551 Seconds (82-134)
--- NOTE | 2024-09-19 09:28 | PN.DE.MGMTRT ---
Insulin Management
- -
09/18/24 Diabetes Management Consult Follow up
Patient admitted 09/16 from [facility] for chest pain. PMH Prostatitis, malignant neoplasm prostate, neuropathy, elevated LFT's, HCL, Meniere's disease, 3b CKD. Prior to admission was taking Actos 30 mg @ HS, degludec 14 units daily, 10 mg
Glipizide in AM and 5 mg @ HS. ~ 1 1/2 weeks ago was started on aspart before dinner. A1C 6.7, cr 1.1, eGFR > 60. Patient states he sees Dr. Segura, endocrine for ongoing diabetes management. He has a Liz CGM.
09/18 Glucose stable 127 to 163 on regimen of lantus 14 units in AM with glipizide 10 mg in AM and 5 mg PM.
09/19 Fasting glucose 99; Patient is currently in the OR.
To start glycemic protocol insulin infusion s/p OR.
Discussed with nurse.
Will follow.
Diabetes History
- -
Type of Diabetes: 2 requiring insulin
Pre-Admission Diabetes Regimen
09/19/24
04:42
Creatinine 1.3
Lab Results
Hemoglobin A1c 6.7 % (4.0-5.6) H 09/17/24 02:05
Insulin Pump Settings
IP Diabetes Regimen
09/18/24 09/18/24 09/18/24
12:27 17:29 21:50
Glucose
POC Glucose 163 H 149 H 156 H
09/19/24 09/19/24
04:42 05:44
Glucose 99
POC Glucose 112 H
Meal type: Dinner
Amount consumed: 100%
Patient Education
[2024-09-19] MEDS: NOVOLOG FLEXPEN-MODERATE RESISTANCE SC (09:30)
[2024-09-19] MEDS: DETROL LA PO (09:30)
[2024-09-19] MEDS: LANTUS SC (09:31)
[2024-09-19] MEDS: LOW STRENGTH ASPIRIN PO (09:31)
[2024-09-19] MEDS: TOPROL XL PO (09:31)
--- NOTE | 2024-09-19 09:37 | CM ---
Reviewed chart. Mr. Souza is in the operating room today. Prior to admission he rresides with his spouse in a two story with three steps to enter. He has a stair glide to get to the second floor. He has a dtair glide and a shower chair at
home. Prior to admission he was independent with ambulation and adls. Medical work-up in progress. The discharge plan is to return home with his spouse and a home visit by the Transitional Care Nurse when medically stable.
[2024-09-19 09:46] LABS: ACT+ - POC 528 Seconds (82-134)
[2024-09-19 10:19] LABS: B.E. - POC 1.7 mmol/L; Glucose - POC 72 mg/dl (70-99); HCO3 - POC 26 mmol/L (21-28); Hematocrit - POC 27 % PCV (42-52); Hemodilution- POC Yes; Hemoglobin Calculated - POC 9.1; Ionized Calcium - POC 1.11 mmol/L (1.15-1.33); Lactate - POC 0.44 mmol/L (0.36-0.75); PCO2 - POC 39 mmHg (35-48); PO2 - POC 374 mmHg (83-108); Potassium - POC 3.8 mmol/L (3.5-5.1); Sodium - POC 141 mmol/L (136-145); Specimen Type - POC Arterial; pH - POC 7.43 (7.35-7.45)
[2024-09-19 10:25] LABS: ACT+ - POC 101 Seconds (82-134)
[2024-09-19 10:32] LABS: B.E. - POC 1.8 mmol/L; Glucose - POC 93 mg/dl (70-99); HCO3 - POC 25 mmol/L (21-28); Hematocrit - POC 22 % PCV (42-52); Hemodilution- POC Yes; Hemoglobin Calculated - POC 7.6; Ionized Calcium - POC 1.29 mmol/L (1.15-1.33); Lactate - POC 0.85 mmol/L (0.36-0.75); PCO2 - POC 35 mmHg (35-48); PO2 - POC 358 mmHg (83-108); Potassium - POC 3.7 mmol/L (3.5-5.1); Sodium - POC 145 mmol/L (136-145); Specimen Type - POC Arterial; pH - POC 7.48 (7.35-7.45)
[2024-09-19 10:44] LABS: B.E. - POC -0.3 mmol/L; Glucose - POC 80 mg/dl (70-99); HCO3 - POC 24 mmol/L (21-28); Hematocrit - POC 24 % PCV (42-52); Hemodilution- POC Yes; Hemoglobin Calculated - POC 8.3; Ionized Calcium - POC 1.26 mmol/L (1.15-1.33); Lactate - POC 1.01 mmol/L (0.36-0.75); O2 Saturation %Calculated-POC 99.9 % (94-98); PCO2 - POC 35 mmHg (35-48); PO2 - POC 314 mmHg (83-108); Potassium - POC 3.7 mmol/L (3.5-5.1); Sodium - POC 145 mmol/L (136-145); Specimen Type - POC Arterial; pH - POC 7.44 (7.35-7.45)
--- NOTE | 2024-09-19 10:54 | W.PN.CT.SURG ---
Addendum entered and electronically signed by Zbigniew William MD 09/19/24 11:17:
Procedure(s) Performed:
1. Standard sternotomy with aortic and right atrial cannulation
2. Internal mammary artery harvesting
3. Coronary artery bypass grafting x 4 (In situ AMATO to LAD, Ao to RSVG to OM1, Ao to RSVG to Diag, Ao to RSVG to RPDA)
4. Endoscopic vein harvesting of right lower extremity
5. Placement temporary ventricular pacing wire
6. Left atrial appendage exclusion [35 mm clip, serial number [id number]]
7. Transesophageal echocardiography
Original Note:
CT Surgery Operative Note
-
CARDIAC SURGERY OPERATIVE REPORT
Preoperative Diagnosis: Multivessel Coronary Artery Disease with STEMI and reduced left ventricular ejection fraction secondary to ischemic cardiomyopathy
Postoperative Diagnosis: Same
Procedure(s) Performed:
1. Standard sternotomy with aortic and right atrial cannulation
2. Internal mammary artery harvesting
3. Coronary artery bypass grafting x 4 (In situ AMATO to LAD, Ao to RSVG to OM1, Ao to RSVG to Diag, Ao to RSVG to RPDA)
4. Endoscopic vein harvesting of right lower extremity
5. Placement temporary ventricular pacing wire
6. Left atrial appendage exclusion [35 mm clip]
7. Transesophageal echocardiography
Date of Surgery: 09/19/2024
Comorbidities:
1. Subacute anterior [place], STEMI
2. Ischemic cardiomyopathy with EF of 40 to 45%
3. Hypertension
4. Hyperlipidemia
5. Diabetes mellitus
6. CKD Stage 3A
7. Prostate cancer status post prostatectomy
8. Hearing impaired, M�ni�re's disease
9. Orthopedic issues
Attending Surgeon: Zbigniew William MD, MS
Assistants: Zbigniew Grady PA-C (present and necessary to printing assistant, retraction, suction, exposure, suture management, and wound closure under my direction) & Nimo Martin PA-C (endo vein harvest)
Anesthesiology: Nolberto Rice MD and Niki Khan CRNA
Scrub and Circulating RNs: Jayleen Merritt, RN, Kit Zarate RN
Supervisor Of Instruction: Sravanthi Hughes CCP
Anesthesia: GETA
EBL: per perfusion records
Products: None
CPB Time: 75 minutes
Aortic Cross Clamp Time: 66 minutes
Indication(s) for Procedures: This is an 84-year-old male who is otherwise functional with a history of diabetes who presented with approximate 1 week of chest pain and was found to have ACS. He was admitted to the hospital and surgery was
consulted for total revascularization. I discussed his STS risk as well as the planned operation and he agreed to move forward with operative intervention.
Conduit(s) Quality:
AMATO -skeletonized/excellent quality conduit
RSVG -excellent/uniform with minimal varicosities or thickening
Target(s) Quality:
RCA/PDA -excellent/large caliber RPDA vessel, flow probe assessment with a mean flow of 20 with a pulsatile index of 4.6
OM -excellent/large caliber vessel, mean flow of approximately 25 with a pulsatile index of 6.3
Diagonal�good/smaller caliber vessel however had a mean flow of approximately 20 cc a minute with a pulsatile index of 3.8
LAD -excellent/good visual flow in the LAD territory upon removal of the bulldog clamp with visual pinking up of the myocardium anteriorly and towards the apex, flow probe assessment with a mean flow of 50 cc a minute with a pulsatile index of 3.8
Findings: His left ventricular ejection fraction preoperatively was 40 to 45% with regional wall motion abnormalities mostly towards the anterior septal and apical regions. Following surgery his EF remained the same at 40 to 45% with no new
regional wall motion abnormalities. The AMATO was harvested in a skeletonized fashion. Following bypass grafting, test dose cardioplegia was given down each distal and confirmed patency and hemostasis. Flow probe assessment of all graft demonstrated
excellent numbers with good pulsatility indices, his left atrial appendage was verified to be free of any thrombus or debris preoperatively and found to be totally occlusive postoperatively. No blood products were given, no inotropic support was
required. He was in a sinus bradycardic rhythm initially with a first-degree AV block and then slowly improved to normal sinus rhythm.
Description of Procedure: The patient was taken to the operating room. Their identity and procedure to be performed were verified and they were positioned supine on the operating table. Induction via general anesthesia with endotracheal intubation
was performed and central venous access and arterial monitoring were inserted. A preoperative transesophageal echocardiogram was performed to assess cardiac function and valvular function. The patient was then prepped and draped from chin to feet in
a sterile fashion. A preoperative time-out was performed with all members of the team present. A midline chest incision was performed along with median sternotomy. Simultaneous endoscopic access of the right lower extremity for saphenous vein
harvest was obtained along with administration of an initial 5,000 units of IV heparin. A RulTract sternal retractor was positioned to exposure the left internal mammary bed. The mammary was harvested and found to have good flow. A bulldog clamp was
applied to the distal end of the mammary after dividing it. It was wrapped in a papaverine soaked RayTec and replaced back into the left hemithorax. The RulTract was exchanged for a median sternal retractor. The innominate vein was isolated. Full
heparinization was given (a total of 60,000 units). We created a pericardial well. The aortic cannulation site was chosen where it was soft, pliable, and free of calcium. Cannulation was performed with an arterial cannula in the ascending aorta and
a triple-stage venous cannula through the right atrial appendage. The arterial cannula line had an appropriate bounce and correlating pressures with test dosing. Next, a root vent/antegrade cannula was inserted into the ascending aorta. The ACT was
confirmed to be over 400 and retrograde autologous priming was performed before commencing cardiopulmonary bypass. The pulmonary artery was away from the aorta to facilitate a clamp site. The aortic cross-clamp was placed after decreasing
the flow on the bypass and mean arterial pressure. A total of 1.2L initial dose of antegrade Del-Nido cardioplegia solution was given and planned for re-dosing every 75 minutes as necessary. There was rapid electro-mechanical arrest of the heart at
360 cc of cardioplegia. The left ventricle was observed for distention on echocardiogram and manual palpation. Cold slush was placed into a sponge and topically on the RV while we systemically cooled to 34 degrees centigrade. Once the heart was
fully arrested was rotated medially and the left H appendage was clipped flush the base with a 35 mm device. The ligament of Javon was also divided.
Since I ready expose the heart on the lateral portion for the left atrial Penders ligation, the OM graft was read exposed and so was prepped using a [place] blade and a small coronary arteriotomy was created. This incision was then enlarged with
Connelly scissors and end-to-side anastomosis was created with 7-0 Prolene in a running fashion after beveling the vein graft. Test dosing of antegrade was given down the vein graft which demonstrated excellent mean flow and hemostasis. The graft was
then measured to the length of the aorta and cut. I positioned the heart to expose the distal right coronary at the posterior descending artery. A [employer] [place] [place] blade was used to expose the coronary and perform the arteriotomy. Coronary Connelly scissors
were used to enlarge the incision. The saphenous vein was trimmed and beveled to an appropriate size. The distal anastomosis was performed using 7-0 prolene in an end-to-side fashion. Antegrade cardioplegia was administered into the graft.
Appropriate hemostasis and flow were confirmed. The graft was measured for length to the aorta and cut. I decided at this point that we had enough vein graft in order to accommodate a diagonal graft and so the heart was then repositioned again to
expose the diagonal vessel. We dissected and prepared the distal target in a similar fashion. An end-to-side anastomosis was created with a 7-0 prolene. Antegrade cardioplegia was administered into the graft. Appropriate hemostasis and flow were
confirmed. The graft was measured for length to the aorta and cut. A suitable target on the distal left anterior descending was identified. We dissected and prepared the distal target in a similar fashion. We retrieved the AMATO from the chest and
created a pericardial opening while being cognizant of the phrenic nerve to facilitate the course of the mammary. The distal end of the mammary was prepped and beveled to size. We verified orientation and length of the LYNSEY and found brisk flow. An
end-to-side anastomosis was created with a 7-0 prolene. We temporarily released the bulldog clamp on the mammary to inspect flow. Perfusion to the LAD territory was visualized and hemostasis was confirmed. The bull clamp was replaced on the mammary.
The heart was filled and the root was distended with antegrade cardioplegia to make final assessment of graft length and orientation. We created 3 aortotomies using a #11 blade then a 4.0mm aortic punch. The proximal anastomoses were created in an
end-to-side fashion using 6-0 prolene. At the the same time, we re-warmed to 36.5 degrees centigrade. The bulldog clamp was removed from the mammary. Temporary bipolar ventricular pacing wires were placed on the base of the right ventricle. The
patient was placed in a Trendelenburg position and flows on bypass were lowered. The aortic cross clamp was removed and flows were slowly brought back up. A 30-gauge needle was used to de-air the vein grafts. All bypass grafts were inspected and
were free from kinking or twisting. The distal and proximal anastomoses appeared hemostatic. Once transesophageal echocardiography appeared satisfactory for de-airing, the flows were temporarily lowered for root vent removal. After verifying
acceptable parameters, we initiated weaning from cardiopulmonary bypass. Once we were off cardiopulmonary bypass, the venous cannula was clamped and removed. A test dose of protamine was administered and the patient was monitored for any adverse
reaction before resuming protamine. Once half of the protamine dose was delivered, pump suckers were turned off and the systolic blood pressure was lowered for aortic decannulation. The aortic cannula was removed and pursestrings were tied down. All
cannulation sites were oversewn with a 4-0 prolene. The mammary bed was inspected and hemostasis was confirmed. Once the mediastinum was hemostatic, 19Fr Maninder drain was placed in the left pleural cavity and two 24Fr Maninder drains were placed within
the pericardium. The sternum was approximated with 4 #7 single and 3 #8 double stainless steel wires. Fascia was approximated with #1 vicryl suture. The subcutaneous, dermis and epidermis were closed in layers in a running fashion. The skin wound
was cleansed and dressed.
All instrument, sponge, and needle counts were confirmed to be correct x 2 at the end of the operation. The patient was transferred to the cardiac intensive care unit in critical but stable condition.
I, Dr. Zbigniew William, was present, scrubbed for, and performed all critical elements of this procedure.
Zbigniew William MD, MS
Cardiothoracic Surgeon
[facility]
This operative dictation was created using the Comic Reply dictation system. Please excuse any grammatical, typographical, or 'sound alike' errors
[2024-09-19 11:13] LABS: Glucose - Point of Care 88 mg/dl (70-99)
[2024-09-19 11:26] LABS: B.E. -1.6 mmol/L; HCO3 22.9 mmol/L (21-28); Ionized Calcium 1.29 mMOL/L (1.15-1.33); O2 Saturation % 99.8 % (94-98); PCO2 37 mmHg (35-48); PO2 112 mmHg (83-108); Potassium 4.2 mMOL/L (3.5-5.1); Sodium 137 mMOL/L (136-145)
--- NOTE | 2024-09-19 11:30 | W.PN.CARDCBS ---
Addendum entered and electronically signed by Enmanuel Lundy MD 09/19/24 13:12:
I saw and examined the patient.
The Shipping And Receiving Supervisor's note was reviewed and I agree with the note.
Comment:
GEN: No distress, intubated and sedated
HEENT: supple, anicteric, mmm, ET tube
LUNGS: CTA, no wheezes/rales
CV: Reg, S1/S2, no rub
ABD: soft, BS+, NT/ND
EXT: No edema
NEURO: Gross non-focal
SKIN: sternotomy
Plan:
Doing well status post CABG x 4. Off drips.
Remains in sinus rhythm.
Wean to extubate.
Continue metoprolol and amiodarone. Hemoglobin at 9.4.
Original Note:
Today's Communication / Plan
-
continue post op care
Impression / Plan
-
PCP: Raquel Coreria MD
CDY: Jaylen Webster MD
IMPRESSION:
Subacute Anterior IA
Ischemic cardiomyopathy, EF 40-45%
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
HTN
HLD
DM
CKD3a
Prostate Cancer w/prostatectomy (07/2023)
Meniere's Disease/hearing loss
Cervical disc disease C6-C7 w/radiculopathy
Echo 09/13- LVEF 40-45%, distal septal/apical/inferoapical HK
PLAN:
-Patient was admitted to [facility] initially with evidence of subacute anterior IA and transferred to [facility] for cardiac catheterization completed 09/16/2024. Cath showed three-vessel obstructive coronary disease with clear
culprit being mid LAD lesion.
-s/p CABG x4 In situ AMATO to LAD, Ao to RSVG to OM1, Ao to RSVG to Diag, Ao to RSVG to RPDA, SAILAJA clip 4/3/25
-EF 40-45% post surgery by [facility]
-intubated, sedated
-off pressors
-in SR with 1st degree av block and evolving anterior infarct by EKG and review of tele
-continue post op care
-eventual GDMT of ICM as able.
-LDL 113. Continue Lipitor 40 mg every afternoon. LFTs were transiently elevated at [place], likely due to IA and improved
-Hemoglobin A1c 7.2%. Actos stopped. Would plan to start Farxiga when okay per surgery. appreciate diabetic MESSAGE BROKER DEVELOPER
-Follow up w/Dr. Webster, ATC at d/c
-d/w nursing
HPI: This is an 84 y/o white male, PMH sig for DM, CKD3a, HLD, HTN, prostate cancer.
Seen in outpt cardiology setting on 09/13 for 1 week history intermittent chest pain radiating to LUE, associated dyspnea, lightheadedness, belching. EKG indicated that he likely suffered an acute IA earlier in the week, with anterior Q waves and
marked anterolateral ST/T wave abnormalities, for which he had not sought urgent medical attention. He was sent to [facility] ER from the office.
First HS troponin was peak at 2165, with corresponding CK 237/MB 13.8. Started on IV Heparin, aspirin. Transferred today for [facility].
Progress Note - Photographer Motion Picture
Subjective
Date of Service: September 19, 2024
intubated, sedated
Objective
Labs:
Labs
Hgb 11.7 g/dL (13.0-18.0) L 09/19/24 04:42
Hct 35.3 % (39.0-52.0) L 09/19/24 04:42
Plt Count 155 10^3/uL (130-400) 09/19/24 04:42
PT 14.4 Sec (11.4-14.6) 09/17/24 02:05
INR 1.09 09/17/24 02:05
APTT Cancelled 09/19/24 11:30
Sodium 140 mmol/L (135-145) 09/19/24 04:42
Potassium 3.9 mmol/L (3.5-5.1) 09/19/24 04:42
BUN 26 mg/dl (9-20) H 09/19/24 04:42
Creatinine 1.3 mg/dL (0.7-1.3) 09/19/24 04:42
Glucose 99 mg/dl (70-99) 09/19/24 04:42
Vital Signs and I&O:
Vital Signs
Temp Pulse Resp BP Pulse Ox
96.8 F L 52 14 133/68 97
09/19/24 11:22 09/19/24 11:08 09/19/24 11:22 09/19/24 05:56 09/19/24 11:22
Vital Signs
Temp Pulse Resp BP Pulse Ox
96.8 F L 52 14 133/68 97
09/19/24 11:22 09/19/24 11:08 09/19/24 11:22 09/19/24 05:56 09/19/24 11:22
Intake & Output
09/17/24 09/18/24 09/19/24 09/20/24
07:59 07:59 07:59 07:59
Intake Total 480 / 480 528 / 528 32.4 / 32.4
Output Total
Balance 480 / 480 528 / 528 2.4 / 2.4
Physical Exam
Physical Exam
GEN: No distress, intubated, sedated
HEENT: supple, mmm
LUNGS: CTA B/L, no wheezes
CV: Reg, S1/S2, no murmur
EXT: No cyanosis, clubbing, edema
NEURO: sedatedl
SKIN: Warm, pink, dry. No rash. Sternotomy incision c/d/i.
[2024-09-19 11:35] LABS: APTT 30.3 Sec (23.4-35.0); INR 1.42; PT 17.8 Sec (11.4-14.6)
[2024-09-19 11:36] LABS: Blood Urea Nitrogen 21 mg/dl (9-20); Estimated Creatinine Clearance 55 ml/min; Glucose 81 mg/dl (70-99); Magnesium 2.4 mg/dl (1.6-2.3)
--- NOTE | 2024-09-19 11:43 | CON.INTV ---
Consultation
Consultation Request
Date/Time Consultation Requested: 09/19
Date/Time Consultation Performed: 09/19
Reason for Consultation: Critical care
Medical History
-
History of Present Illness:
History obtained from the chart, inpatient records. Patient intubated unable to provide history. 84-year-old male who presents 09/16/2024 with history of hypertension, diabetes, chronic kidney disease, presented with 1 week history of chest
discomfort, left arm pain, shortness of breath. Patient had abnormal EKG. He eventually was seen at [facility], found to have elevated troponin, transferred to [facility] 09/16. Catheterization revealed triple-vessel coronary
disease. Patient treated with IV heparin, aspirin, beta-sunni, statin therapy. Echocardiogram at outside hospital EF 40%. Patient is now status post CAB x 4, temporary ventricular pacing wire, left atrial clip. Patient currently on insulin,
Precedex. No pressors required. We are asked to help from critical care standpoint 09/19/24
.
PMH: Hypertension, hyperlipidemia, ischemic cardiomyopathy EF 40%, diabetes, chronic kidney disease, history of prostate cancer with prostatectomy in the past. History of cervical spine surgery, neck surgery in the past
Past Medical History
Past Medical History: None (See above)
Past Surgical History: None ( See above)
Social History
Tobacco: Non-smoker
Alcohol: None
Drug: None
Personal:
Living: With Family
Employment: Retired
Family History
Family History: Other (Family history of hypertension, diabetes and colon cancer)
Allergies / Home Medications
Allergies
Allergy/AdvReac Type Severity Reaction Status Date / Time
atorvastatin [From Lipitor] Allergy Rash Verified 09/16/24 12:29
ciprofloxacin [From Cipro] Allergy Rash Verified 09/16/24 12:29
ezetimibe [From Zetia] Allergy Rash Verified 09/16/24 12:29
morphine Allergy severe Verified 09/16/24 12:29
Nausea /
Vomiting
simvastatin [From Zocor] Allergy Rash Verified 09/16/24 12:29
sitagliptin [From Januvia] Allergy myalgia,joint Verified 09/16/24 12:29
pain
Sulfa (Sulfonamide Allergy Rash/vomiti Verified 09/16/24 12:29
Antibiotics) ng
sulfamethoxazole Allergy Hives Verified 09/16/24 12:29
[From Bactrim]
trimethoprim [From Bactrim] Allergy Hives Verified 09/16/24 12:29
Home Medications
�Medication �Instructions �Recorded �Confirmed �Last Taken �Type
acetaminophen 650 mg 1,300 mg PO Q12H PRN pain 09/16/24 09/16/24 09/13/24 08:00 History
tablet,extended release (Tylenol
Arthritis Pain)
amlodipine 5 mg tablet 5 mg PO BID 09/16/24 09/16/24 09/06/24 08:00 History
atenolol 25 mg tablet 25 mg PO BID 09/16/24 09/16/24 09/13/24 08:00 History
calcium carbonate (Calcium 600) 1,200 mg PO DAILY 09/16/24 09/16/24 09/13/24 08:00 History
celecoxib 200 mg capsule 200 mg PO DAILY 09/16/24 09/16/24 09/13/24 08:00 History
cholecalciferol (vitamin D3) 50 50 mcg PO DAILY 09/16/24 09/16/24 09/12/24 20:00 History
mcg (2,000 unit) capsule
cyanocobalamin (vitamin B-12) 1,000 mcg PO DAILY 09/16/24 09/16/24 09/13/24 20:00 History
1,000 mcg tablet (Vitamin B-12)
diazepam 2 mg tablet 2 mg PO HS PRN vertigo 09/16/24 09/16/24 09/13/24 20:00 History
famotidine 40 mg tablet 40 mg PO BID 09/16/24 09/16/24 09/13/24 08:00 History
ferrous sulfate 27 mg iron tablet 27 mg PO DAILY 09/16/24 09/16/24 Unknown History
glipizide 10 mg tablet 10 mg PO DAILY 09/16/24 09/16/24 09/13/24 08:00 History
glipizide 5 mg tablet 5 mg PO HS 09/16/24 09/16/24 09/12/24 20:00 History
hydrochlorothiazide 12.5 mg tablet 12.5 mg PO DAILY 09/16/24 09/16/24 09/06/24 08:00 History
insulin aspart U-100 100 unit/mL 5 unit SC HS 09/16/24 09/16/24 09/13/24 08:00 History
(3 mL) subcutaneous pen
insulin degludec 100 unit/mL (3 14 unit SC DAILY 09/16/24 09/16/24 09/13/24 08:00 History
mL) subcutaneous pen (Tresiba
FlexTouch U-100 insulin)
loratadine 10 mg tablet 10 mg PO HS 09/16/24 09/16/24 09/13/24 20:00 History
pioglitazone 30 mg tablet 30 mg PO HS 09/16/24 09/16/24 09/13/24 20:00 History
polyethylene glycol 3350 17 4 g PO DAILY 09/16/24 09/16/24 09/06/24 08:00 History
gram/dose oral powder
psyllium husk 3.4 gram/5.4 gram 1 tsp PO DAILY 09/16/24 09/16/24 09/13/24 08:00 History
oral powder (Metamucil)
red yeast rice 600 mg tablet 1,200 mg PO BID 09/16/24 09/16/24 09/13/24 08:00 History
solifenacin 10 mg tablet 10 mg PO DAILY 09/16/24 09/16/24 09/13/24 08:00 History
triamcinolone acetonide 0.1 % 1 applic topical BID 09/16/24 09/16/24 09/13/24 08:00 History
topical cream
Review of Systems
-
All other systems: Negative unless noted
Vitals / Labs / Diagnostic Testing
Vital Signs
Temp Pulse Resp BP Pulse Ox
96.6 F L 52 14 133/68 97
09/19/24 11:36 09/19/24 11:08 09/19/24 11:22 09/19/24 05:56 09/19/24 11:32
Lab Data
09/19/24 11:13
Laboratory Results
09/19/24 09/19/24 09/19/24
04:42 11:13 11:30
PT 17.8 H
INR 1.42
APTT 128.6 H 30.3 Cancelled
pH 7.40
pCO2 37
pO2 112 H
HCO3 22.9
O2 Delivery Level
Diagnostic Testing:
Physical Exam
-
HEENT: Normocephalic and Other (IJ, A-line, chest tube)
Cardiovascular: S1/S2, Regular Rhythm, Murmur (n), Rub (n) and Peripheral Edema (Right lower extremity bandage)
Respiratory: Wheeze (n), Rales (n), Rhonchi (n), Non-Labored Respirations and Other (ET tube)
GI: Soft, Non Distended and Non Tender
Neurology: Other (Sedated)
Skin: Good Color
General: Comfortable
Assessment
-
84-year-old male with history of hypertension, hyperlipidemia, prostate cancer, chronic kidney disease presented with chest pain, shortness of breath, arm pain, acute KS at [facility], transfer to [facility] found to have multivessel coronary
disease, ischemic cardiomyopathy EF 40%. He is status post CAB x 09/19/24
S/p CAB x 4, 09/19/24
Left atrial clip
Ventricular pacer
Postoperative anemia
Ischemic cardiomyopathy EF 40%
S/p NSTEMI at [facility] 09/16/24
Conditions present prior to admission
Hypertension/hyperlipidemia
Chronic kidney disease stage IIIa
History of prostate cancer with prostatectomy 2023
Family history of colon cancer
Plan/recommendations
At this time, patient remains critically ill but stable
Has not required pressors, remains on volume-cycled ventilation
FiO2 weaned down to 60%, airway pressures adequate, oxygenation/ventilation adequate
Postoperative chest x-ray without acute findings
Postoperative EKG, sinus bradycardia with first-degree AV block with inferior Q-wave
Moving forward
Continue with management per CT surgery
Chest tube with minimal output. Has not required blood products
Precedex is being weaned
Preprocedure echocardiogram with EF 40%, confirmed with VA/09/10, no thrombus seen
Anticipate extubation later today
EKG noted with first-degree AV block, inferior Q
Ventricular pacer wires in place
Follow liver function
Follow blood sugars
Currently on insulin drip
Records suggest mildly elevated liver function [facility], normal on 09/17
Creatinine remains stable at 1.2
Follow urine output
History of CKD noted
Reviewed with critical care nursing
We will follow
TCCT 31 min
--- NOTE | 2024-09-19 11:47 | PTCARENOTE ---
Received pt from [facility] at 1110; pt intubated and sedated; Sinus sharlene on monitor with First Degree AVB; RIJ Cordis/SLIC, Right A-line and PIV x1 all patent; Insulin and Precedex infusing see flow sheet for details; Epicardial V wire set to back up
VVI 40/20/0.8; + rub; Lungs diminished; CT x3 to -20 wall suction no air leak or crepitus noted; hypoactive bowel sounds; Jerome catheter draining clear yellow urine; pulses present by Doppler; no edema noted; all surgical sites C/D?I; see nursing
documentation for further details.
[2024-09-19 12:04] LABS: Glucose - Point of Care 108 mg/dl (70-99)
--- NOTE | 2024-09-19 12:13 | W.PN.UPDATE ---
Update Note
Progress Note Update
84 year old male seen 09/13 by Outpatient cardiology for1 week history of intermittent chest pain, radiating to LUE w/dyspnea. RI for STEMI by EKG and patient sent to [facility] emergency room. Troponins elevatedand IV Heparin/ASA initiated. patient
transferred to 09/16 for left heart cath which reported 3VCAD
IV fluids: 1400
U.O.:� 225
Blood:� none
Wires:� Bipolar V-wire
Inotropes:� N/A
Pressors:� N/A
Sedatives:� Precedex
�
NEURO: sedated, pupils +2mm B/L
RESP: #8OT @22cm> 550/40%/14/5. Lungs clear B/L. 2 mediastinal (10cc on arrival) and L pleural (0cc on arrival) chest tubes to -20cm suction. Sanguineous drainage, no air leak, no crepitus
CV: RRR +S1, S2, no S3, no�rub, no murmur. Dermabond to median sternotomy. RIJ w/slik
ABD: round, soft, no BS
EXT: no edema, +2/4 DP pulses B/L, no femoral bruit, RLE ROGELIO wrap intact; right radial A-line intact
: Jerome with clear yellow urine
�
A/P: POD #0 s/p CABG x 4 (AMATO to LAD, SVG to OM1, SVG to Diag, SVG to RPDA), left atrial appendage exclusion [#35 mm clip]
VA: EF�40-45%
- wean and extubate
# CAD/STEMI/ICM/HFrEF
- will require ASA/Plavix, statin-(will try Crestor as rash with Lipitor, Zocor, Zetia), beta-sunni, ACEI vs ARB
- DC Actos w/low EF
�
# acute surgical blood loss anemia-expected
- trend CBC
�
# T2DM (A1C 6.7)
- insulin infusion x 48h
- diabetes MARKETING SALES CONSULTANT consulted for post-op medication management
# CKD3a (GFR 54)
- trend creat/UO
- ACEI vs ARB for renoprotective effect
#Hx prostate C/A s/p prostatectomy 2023
- bladder scan per protocol when Jerome removed
--- NOTE | 2024-09-19 12:13 | PTCARENOTE ---
Epicardial V wires tested, new settings VVI 40/11/17 currently no pacing noted on monitor and VSS.
[2024-09-19] MEDS: DILAUDID 0.5 MG IV (12:20)
[2024-09-19 12:27] LABS: Hematocrit 26.7 % (39.0-52.0); Hemoglobin 9.4 g/dL (13.0-18.0); Platelet Count 107 10^3/uL (130-400)
[2024-09-19 13:08] LABS: Glucose - Point of Care 108 mg/dl (70-99)
[2024-09-19] MEDS: LR 250 ML IV ×4 (13:26→17:28)
[2024-09-19] MEDS: PEPCID PO (13:27)
[2024-09-19] MEDS: NOVOLOG FLEXPEN SC ×3 (13:27→17:38)
[2024-09-19] MEDS: NSS 500 IV (13:27)
[2024-09-19] MEDS: ANCEF 10 IV ×2 (13:27)
[2024-09-19] MEDS: NEURONTIN PO ×2 (13:27→15:06)
[2024-09-19 14:04] LABS: Glucose - Point of Care 85 mg/dl (70-99)
[2024-09-19] MEDS: TYLENOL PO ×2 (14:13→22:23)
[2024-09-19 15:04] LABS: Glucose - Point of Care 96 mg/dl (70-99)
[2024-09-19] MEDS: PACERONE PO ×2 (15:06→22:31)
[2024-09-19 16:02] LABS: Hematocrit 29.9 % (39.0-52.0); Hemoglobin 10.5 g/dL (13.0-18.0); Platelet Count 145 10^3/uL (130-400)
[2024-09-19 16:04] LABS: Glucose - Point of Care 99 mg/dl (70-99)
[2024-09-19 16:32] LABS: B.E. - POC -0.5 mmol/L; Blood Urea Nitrogen - POC 22 mg/dl (3-120); Chloride - POC 108 mmol/L (96-111); Creatinine - POC 1.35 mg/dl (0.3-1.0); Glucose - POC 103 mg/dl (70-99); HCO3 - POC 25 mmol/L (21-28); Hematocrit - POC 31 % PCV (42-52); Hemodilution- POC Yes; Hemoglobin Calculated - POC 10.6; Ionized Calcium - POC 1.28 mmol/L (1.15-1.33); Lactate - POC 0.75 mmol/L (0.36-0.75); PCO2 - POC 41 mmHg (35-48); PO2 - POC 105 mmHg (83-108); Potassium - POC 4.5 mmol/L (3.5-5.1); Sodium - POC 143 mmol/L (136-145); Specimen Type - POC Arterial; pH - POC 7.39 (7.35-7.45)
--- NOTE | 2024-09-19 16:36 | PTCARENOTE ---
CT PROGRAMMING COORDINATOR and respiratory at bedside; ABGs resulted and per CT PROGRAMMING COORDINATOR ok to extubate pt; pt extubated and placed on 6L NC; NSR on monitor and VSS.
--- NOTE | 2024-09-19 16:47 | RESPNOTE ---
1635-- Extubated to 6 liter NC at this time without incident.
[2024-09-19] MEDS: ZOFRAN 4 MG IV (16:52)
[2024-09-19] MEDS: CRESTOR PO (17:38)
[2024-09-19] MEDS: ANCEF 5 IV (17:56)
[2024-09-19] MEDS: LOW STRENGTH ASPIRIN 81 MG PO (17:57)
[2024-09-19 18:06] LABS: Glucose - Point of Care 99 mg/dl (70-99)
--- NOTE | 2024-09-19 18:57 | PTCARENOTE ---
Epicardial V wire inappropriately pacing on monitor; V wire disconnected from pacer box; report given to fast food shift lead RN.
--- NOTE | 2024-09-19 19:30 | PTCARENOTE ---
Patient received from RN @ 1900. Patient lying in bed comfortably with call izaguirre in reach. Patient Drowsy but awakens to verbal and tactile stimulation. AOx3. NSR w/ first degree heart block BP 115/46. HR 75. Heart sounds audible. Rub noted.
V wires set to 40/7/0.8 but not connected to box due to inappropriate pacing. Lungs diminished all over anterior bilaterally. POX 100% 6L NC. IS 500. CT x3 L pleural and 2x med set to -20 wall suction draining red fluid WNL. No crepitus,
tidaling, or air leaks noted. Jerome draining urine clear yellow urine WNL. bowel sounds hypoactive. Sternal incision dry and approximated. Bruising noted at superior portion of sternal incision. covered w/ gauze 4x4 clean dry and intact. Right
groin puncture dry and approximated LUANN. Right knee incision with Willem wrap dry and intact. Skin tear noted on left forearm. Gauze dressing over appears clean dry and intact. RIJ cordis w/ slick and left PIV patent and intact. Right A-Line
intact. All lines leveled and zeroed. Insulin titrating per glycemic.
[2024-09-19 20:06] LABS: Glucose - Point of Care 98 mg/dl (70-99)
[2024-09-19] MEDS: OFIRMEV 100 IV (20:43)
[2024-09-19] MEDS: COMPAZINE 10 MG IV (20:44)
[2024-09-19 20:57] LABS: Glucose - Point of Care 94 mg/dl (70-99)
[2024-09-19] MEDS: SENOKOT-S PO (21:41)
[2024-09-19 22:09] LABS: Glucose - Point of Care 99 mg/dl (70-99)
[2024-09-19] MEDS: NEURONTIN 100 MG PO (22:28)
--- NOTE | 2024-09-19 22:50 | PTCARENOTE ---
[facility] for pain and Compazine for nausea. See MAR for details. Amiodarone held per CT DOE [place]. HR was bradycardic.
[2024-09-19 23:09] LABS: Glucose - Point of Care 105 mg/dl (70-99)
[2024-09-20] VITALS (42 sets, daily range): BP systolic 114–150; BP diastolic 49–72; PULSE 60; O2SAT 94–95; BMI 31.5
--- NOTE | 2024-09-20 | PTCARENOTE ---
Assessment unchanged. Patient lying in bed comfortably w/ call izaguirre in reach.
[2024-09-20 00:13] LABS: Glucose - Point of Care 108 mg/dl (70-99)
[2024-09-20 02:11] LABS: Glucose - Point of Care 93 mg/dl (70-99)
[2024-09-20] MEDS: ANCEF 5 IV ×2 (02:15→10:12)
[2024-09-20 03:37] LABS: Hematocrit 30.4 % (39.0-52.0); Hemoglobin 10.3 g/dL (13.0-18.0); Mean Corp Hgb Conc. 33.9 g/dL (33.0-37.0); Mean Corpuscular Hgb 31.9 pg (27.0-31.0); Mean Corpuscular Volume 94.1 fL (80.0-94.0); Mean Platelet Volume 10.8 fL (7.4-10.4); Platelet Count 141 10^3/uL (130-400); Red Blood Cell Count 3.23 10^6/uL (4.70-6.10); Red Cell Dist. Width 12.9 % (11.5-14.5); White Blood Cell Count 12.6 10^3/uL (4.8-10.8)
--- NOTE | 2024-09-20 03:40 | ECGCV ---
LORETTA [place] notified of ECG critical value identified by electronic interpretation on ECG completed on 09/20/24, at 0325.
--- NOTE | 2024-09-20 03:43 | PTCARENOTE ---
Labs drawn. CHG cloth bath performed. Leads changed. Patient lying in bed comfortably w/ call izaguirre in reach.
[2024-09-20 04:04] LABS: Blood Urea Nitrogen 24 mg/dl (9-20); Calcium 9.1 mg/dl (8.4-10.2); Carbon Dioxide 21 mmol/L (22-30); Chloride 109 mmol/L (98-107); Estimated Creatinine Clearance 51 ml/min; Glucose 96 mg/dl (70-99); Magnesium 2.1 mg/dl (1.6-2.3); Potassium 4.7 mmol/L (3.5-5.1); Sodium 142 mmol/L (135-145); eGFR 54.51
[2024-09-20 04:17] LABS: Glucose - Point of Care 105 mg/dl (70-99)
--- NOTE | 2024-09-20 04:27 | W.PN.CT ---
Today's Communication / Plan
-
-pod #1
-no issues overnight
-drips: insulin, Cardene 2.5 on and off
-CT outputs: 2 meds 100/210, L pleur 0/25 in 12/24 hrs
-deline
-continue insulin
-intolerance to statins - started on Crestor
-current meds (ASA, Plavix, Crestor, Amio, Lopressor, Protonix). Consider Toprol or Coreg for CM (EF 40-45%)
-encourage IS, OOB
Assessment / Plan
-
-s/p CABG x 4 (In situ AMATO to LAD, Ao to RSVG to OM1, Ao to RSVG to Diag, Ao to RSVG to RPDA); Left atrial appendage exclusion [35 mm clip] by Dr. William on 09/19/24, pod #1
-Intraop VA: LVEF was 40 to 45% preop and postop with no new regional wall motion abnormalities
-Subacute Anterior KS
-USA
-Ischemic cardiomyopathy, EF 40-45%
-MV CAD by cath with culprit mid LAD lesion
-Intolerance of multiple statins (describes generalized myalgia)
-HTN
-HLD
-T2DM (hgb A1C 6.7, on insulin)
-Class 1 obesity (BMI 31.6)
-CKD3a
-Prostate Cancer S/P prostatectomy (07/2023)
-Meniere's Disease/hearing loss
-Cervical spine disease C6-C7 w/radiculopathy
-S/P vocal cord injection for laryngitis/hoarseness
-S/P Left rotator cuff repair
-S/P bilateral cataracts
-Preexisting 1st degree AVB
-Acute postop blood loss anemia - stable, no transfusion
-Acute postop thrombocytopenia
-Acute postop atelectasis
-Acute postop hypovolemia with subsequent hypervolemia
Discussed patient care with: Nursing and Care Team
Subjective
-
Date of Service: September 19, 2024
Objective Data
-
Lab Results
09/19/24 15:50
09/19/24 11:13
PT 17.8 Sec (11.4-14.6) H 09/19/24 11:13
INR 1.42 09/19/24 11:13
APTT Cancelled 09/19/24 11:30
Vital Signs
Vital Signs
Temp Pulse Resp BP Pulse Ox
97.9 F 63 13 115/58 100
09/19/24 22:00 09/19/24 22:00 09/19/24 22:00 09/19/24 22:00 09/19/24 22:00
CT Intake/Output/Weight
09/19/24 09/19/24 09/20/24
06:59 18:59 06:59
Intake Total 1220.2 / 1281.6 61.4 / 1281.6
Output Total 660 / 810 150 / 810
Balance 560.2 / 471.6 -88.6 / 471.6
SaO2: 100
Physical Exam
-
General: Awake and AOx3
Cardiovascular: Regular rate & rhythm, No Murmurs and No Rub
Respiratory: Decreased Breath Sounds
Sternum: Stable
Incision: Clean, Dry and Intact
Extremities: No Edema
Abdomen: soft, nontender, nondistended, + decreased bowel sounds
Data Reviewed
-
Lab Results: Results Reviewed
Medications: Active Meds Reviewed
Chest X-Ray: Report Reviewed and Image Reviewed
ECG: Report Reviewed and Image Reviewed
--- NOTE | 2024-09-20 04:50 | PTCARENOTE ---
Labs reviewed. CT PA notified. A-line and [place] removed per CT PA Burt.
[2024-09-20 06:12] LABS: Glucose - Point of Care 102 mg/dl (70-99)
[2024-09-20] MEDS: TYLENOL 1000 MG PO ×3 (06:57→21:03)
[2024-09-20] MEDS: ZOFRAN 4 MG IV (07:11)
--- NOTE | 2024-09-20 07:53 | W.PN.INTV ---
Today's Communication / Plan
Recommendations
Remains on insulin drip, hopefully can be discontinued in a.m.
Splinting noted, pain control
Out of bed to chair, ambulate
Hemoglobin stable
Chest tube per CT surgery
Assessment
-
84-year-old male with history of hypertension, hyperlipidemia, prostate cancer, chronic kidney disease presented with chest pain, shortness of breath, arm pain, acute DE at [facility], transfer to [facility] found to have multivessel coronary
disease, ischemic cardiomyopathy EF 40%. He is status post CAB x 09/19/24
S/p CAB x 4, 09/19/24
Left atrial clip
Ventricular pacer
Postoperative anemia
Ischemic cardiomyopathy EF 40%
S/p NSTEMI at [facility] 09/16/24
Conditions present prior to admission
Hypertension/hyperlipidemia
Chronic kidney disease stage IIIa
History of prostate cancer with prostatectomy 2023
Family history of colon cancer
Plan/recommendations
At this time, patient appears to be comfortable, extubated without difficulty
Splinting on exam noted, decreased breath sounds at base
Trace to 1+ edema
Has required Cardene intermittently
CXR/10/11 without acute findings
Moving forward
Continue with management per CT surgery
Chest tube with minimal output. Has not required blood products
Preprocedure echocardiogram with EF 40%, confirmed with [facility], no thrombus seen
EKG noted with first-degree AV block, inferior Q
Ventricular pacer wires in place
Follow liver function
Follow blood sugars
Currently on insulin drip, hopefully can come off 09/21
Records suggest mildly elevated liver function [facility], normal on 09/17
Creatinine remains stable at 1.2
Follow urine output
History of CKD noted
Reviewed with critical care nursing
Subjective Dataa
Subjective Data
Date of Service:
Date of Service: September 20, 2024
Subjective:
Patient examined earlier this morning. Sitting in chair, without complaints. Mild splinting noted. Denies nausea, abdominal pain. Has mild shortness of breath, mild cough
Objective Data
Data Reviewed
Vital Signs / I&O / Oxygen:
Vital Signs
Temp Pulse Resp BP Pulse Ox
97.8 F 62 16 128/53 95
09/20/24 07:00 09/20/24 07:50 09/20/24 07:00 09/20/24 07:30 09/20/24 07:50
Intake and Output
09/19/24 09/20/24 09/21/24
06:59 06:59 06:59
Intake Total 528 / 528 1448.1 / 1468.8 41.4 / 41.4
Output Total 1130 / 1175 70 / 70
Balance 528 / 528 318.1 / 293.8 -28.6 / -28.6
SaO2 [CPAP] 97
SaO2 [SIMV] 98
SaO2 95
Nasal Cannula flow liters per 2
minute
Physical Exam
General: Comfortable and Other (IJ, chest tube)
HEENT: Normocephalic and Anicteric
Cardiovascular: S1-S2, Regular Rhythm, Murmur (n), Rub (n) and Peripheral Edema (1+)
Respiratory: Wheeze (n), Crackles (n), Rhonchi (Minimal), Non-Labored Respirations, Chest Tube and Other (Mild splinting on exam, decreased at base)
GI: Soft and Non Distended
Neurology: Awake, Alert and No Motor Deficits
Skin: Cyanosis (n), Jaundice (n), Rash (n) and Other (Lower extremity leg lapping)
Labs/Micro/Reports
Lab Data
09/20/24 03:10
09/20/24 03:10
Laboratory Results
09/19/24 09/19/24
11:13 11:30
PT 17.8 H
INR 1.42
APTT 30.3 Cancelled
pH 7.40
pCO2 37
pO2 112 H
HCO3 22.9
O2 Delivery Level
--- NOTE | 2024-09-20 08:00 | PTCARENOTE ---
Addendum entered by Ching Dominique RN 09/20/24 09:53:
Pt NRS 1st degree AVB with + rub.
Original Note:
Received patient from engineering executive RN. Pt AOx4, NSR 1st degree AVB, RA lungs diminished. Pt c/o 11/26 pain, Cordis and PIV patent. CT x3 -20 suction no airleak no crepitus noted. IS 500. Sternal incison LUANN with skin glue, hypocative bowel sounds.
Jerome patent with clear yellow urine. + radial paulses, doppler DP pulses. OOB to chair. Patient tolerating clear liquids at this time. All needs met, call izaguirre within reach.
[2024-09-20 08:06] LABS: Glucose - Point of Care 113 mg/dl (70-99)
[2024-09-20] MEDS: NOVOLOG FLEXPEN SC ×2 (08:06→12:14)
--- NOTE | 2024-09-20 08:48 | PN.DE.MGMTRT ---
Insulin Management
- -
09/20/24: Diabetes Management Follow up
Patient admitted 09/16 from [facility] for chest pain. PMH Prostatitis, malignant neoplasm prostate, neuropathy, elevated LFT's, HCL, Meniere's disease, 3b CKD. Prior to admission was taking Actos 30 mg @ HS, degludec 14 units daily, 10 mg
Glipizide in AM and 5 mg @ HS. ~ 1 1/2 weeks ago was started on aspart before dinner. A1C 6.7, cr 1.1, eGFR > 60. Patient states he sees Dr. Segura, endocrine for ongoing diabetes management. He has a Liz CGM.
Pt is now POD # 1 s/p CABG x 4, doing well, awake, alert, oriented, sitting up in chair, able to discuss diabetes care plan. at bedside.
Currently on Glycemic protocol, glucose range 93 to 119 requiring 0.4 to 1.2 units of insulin/hr.
Continue glycemic protocol today and reassess in AM for readiness to transition to SQ insulin and oral regimen tomorrow if medically stable
All diabetes orders to assist with transition have been placed in MT for tomorrow @ 11:00 am
Pre-op regimen included Lantus 14 units in AM, Glipizide 10 mg in AM and 5 mg PM.
Start Farxiga 10mg daily and moderate corrective insulin with meals upon transition
Discussed with nurse. Will cont to follow.
Diabetes History
- -
Type of Diabetes: 2 requiring insulin
Pre-Admission Diabetes Regimen
09/19/24 09/20/24
11:13 03:10
Creatinine 1.2 1.3
Lab Results
Hemoglobin A1c 6.7 % (4.0-5.6) H 09/17/24 02:05
Insulin Pump Settings
IP Diabetes Regimen
09/19/24 09/19/24 09/19/24
11:12 11:13 12:02
Glucose 81
POC Glucose 88 108 H
09/19/24 09/19/2425
13:06 14:02 15:02
Glucose
POC Glucose 108 H 85 96
09/19/24 09/19/24 09/19/24
16:03 18:04 20:05
Glucose
POC Glucose 99 99 98
09/19/24 09/19/24 09/19/24
20:56 22:07 23:07
Glucose
POC Glucose 94 99 105 H
09/20/24 09/20/24 09/20/24
00:10 02:08 03:10
Glucose 96
POC Glucose 108 H 93
09/20/24 09/20/24 09/20/24
04:16 06:10 08:04
Glucose
POC Glucose 105 H 102 H 113 H
Meal type: Dinner
Meal type: Lunch
Patient Education
[2024-09-20] MEDS: LOW STRENGTH ASPIRIN 81 MG PO (08:55)
[2024-09-20] MEDS: PEPCID 20 MG PO (08:55)
[2024-09-20] MEDS: PLAVIX 75 MG PO (08:55)
[2024-09-20] MEDS: PACERONE 200 MG PO (08:55)
[2024-09-20] MEDS: LASIX 20 MG IV (08:56)
[2024-09-20] MEDS: DETROL LA 4 MG PO (08:56)
[2024-09-20] MEDS: MAGNESIUM OXIDE 500 MG PO ×2 (08:56→20:14)
[2024-09-20] MEDS: SENOKOT-S 1 TABLET PO ×2 (08:56→20:14)
[2024-09-20] MEDS: PROTONIX 40 MG PO (08:56)
[2024-09-20] MEDS: NEURONTIN 100 MG PO ×3 (08:56→21:03)
[2024-09-20] MEDS: BACTROBAN 2% OINTMENT 1 APPLIC NASAL ×2 (08:57→20:14)
--- NOTE | 2024-09-20 09:23 | W.PN.ANS.POP ---
Anesthesia Post Operative
- Anesthesia Post Op Note
Vital Signs Stable-See Nursing Note: Yes (insulin infusion)
Airway Patent: Yes
Adequate Pain Control: Yes
Change in Mental Status: No
Current Postoperative Nausea & Vomiting: No
Anesthesia Complications: No
General Anesthetic Recall: No
Unplanned Admission: No
Post Op Hydration Adequate: Yes
--- NOTE | 2024-09-20 10:01 | CM ---
Reviewed chart. Met with Mr. Souza to review discharge plans. He states he is feeling okay. He states prior to admission he resides with his spouse in a 105 year old house with three steps to enter. He states he has a full flight of steps to
get to bedroom/full bathroom. He states he does not have a powder room on the first floor. He states he has a stair glide at home that he uses to get to the second floor. He states he has a walk-in shower. He has a stair glide and no other DME in
the home. He states he has a prescription plan. He states his spouse will be home to assist in his care if needed. We reviewed a home visit by david petit Transitional Care Nurse. He is agreeable to a home visit. Medical work-up in progress. The
discharge plan is to return home with his spouse and a home visit by the Transitional Care Nurse when medically stable.
[2024-09-20] MEDS: ROXICODONE 2.5 MG PO ×2 (10:10→21:13)
[2024-09-20 10:20] LABS: Glucose - Point of Care 119 mg/dl (70-99)
[2024-09-20] MEDS: NSS IV (11:22)
[2024-09-20] MEDS: NORVASC 2.5 MG PO (11:22)
--- NOTE | 2024-09-20 12:00 | PTCARENOTE ---
Patient OOB in chair, tolerating well. Pt c/o 5/10 pain, PRN given, see MAR for details. Family at bedside visiting. I/Os charted per order. Insulin gtt still infusing, see titration details. Pt reports numbness/tingling in L hand, STUDENT WORKER made aware, no
new orders at this time. Pt ambulated in carr with cardiac rehab, tolerated well. All needs met at this time, call izaguirre within reach.
[2024-09-20 12:14] LABS: Glucose - Point of Care 136 mg/dl (70-99)
--- NOTE | 2024-09-20 13:08 | W.PN.CARDCBS ---
Addendum entered and electronically signed by Shabbir Galeana MD 09/20/24 13:51:
I saw and examined the patient.
The STUDIO PRODUCER or PA's note was reviewed and I agree with the note.
Comment: General: Well developed, well nourished in NAD.
Neck: Supple, no JVD, HJR, carotids +2 B/L, no bruits bilaterally.
Heart: Non displaced PMI, RRR, no murmurs, No S3, S4, no rubs.
Lungs: Scattered rhonchi
Sternal dressings noted
Extremities: No clubbing, cyanosis or edema bilaterally.
Neuro: Grossly nonfocal, awake, alert and oriented x3.
Stable cardiology status status post CABG. Remains in sinus rhythm.
Original Note:
Today's Communication / Plan
-
continue post op care
in SR
Impression / Plan
-
PCP: Raquel Correia MD
CDY: Jaylen Webster MD
IMPRESSION:
Subacute Anterior SD
Ischemic cardiomyopathy, EF 40-45%
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
HTN
HLD
DM
CKD3a
Prostate Cancer w/prostatectomy (07/2023)
Meniere's Disease/hearing loss
Cervical disc disease C6-C7 w/radiculopathy
Echo 09/13- LVEF 40-45%, distal septal/apical/inferoapical HK
PLAN:
-Patient was admitted to [facility] initially with evidence of subacute anterior SD and transferred to [facility] for cardiac catheterization completed 09/16/2024. Cath showed three-vessel obstructive coronary disease with clear
culprit being mid LAD lesion.
-s/p CABG x4 In situ AMATO to LAD, Ao to RSVG to OM1, Ao to RSVG to Diag, Ao to RSVG to RPDA, SAILAJA clip 09/19/24
-EF 40-45% post surgery by [facility]
-remains on insulin, wean as able over next 24 hours
-in SR on review of tele overnight.
-eventual GDMT of ICM as able.
-continue post op care, OOB/IS as able
-LDL 113. Continue Lipitor 40 mg every afternoon. LFTs were transiently elevated at [place], likely due to SD and improved
-Hemoglobin A1c 7.2%. Actos stopped. Would plan to start Farxiga when okay per surgery. appreciate diabetic STUDIO PRODUCER
-Follow up w/Dr. Webster, ATC at d/c
-d/w nursing
HPI: This is an 84 y/o white male, PMH sig for DM, CKD3a, HLD, HTN, prostate cancer.
Seen in outpt cardiology setting on 09/13 for 1 week history intermittent chest pain radiating to LUE, associated dyspnea, lightheadedness, belching. EKG indicated that he likely suffered an acute SD earlier in the week, with anterior Q waves and
marked anterolateral ST/T wave abnormalities, for which he had not sought urgent medical attention. He was sent to [facility] ER from the office.
First HS troponin was peak at 2165, with corresponding CK 237/MB 13.8. Started on IV Heparin, aspirin. Transferred today for [facility].
Progress Note - Meeting/Event Planner
Subjective
Date of Service: September 20, 2024
reports pain adequately controlled
Objective
Labs:
09/20/24 03:10
09/20/24 03:10
Labs
Hgb 10.3 g/dL (13.0-18.0) L 09/20/24 03:10
Hct 30.4 % (39.0-52.0) L 09/20/24 03:10
Plt Count 141 10^3/uL (130-400) 09/20/24 03:10
PT 17.8 Sec (11.4-14.6) H 09/19/24 11:13
INR 1.42 09/19/24 11:13
APTT Cancelled 09/19/24 11:30
Sodium 142 mmol/L (135-145) 09/20/24 03:10
Potassium 4.7 mmol/L (3.5-5.1) 09/20/24 03:10
BUN 24 mg/dl (9-20) H 09/20/24 03:10
Creatinine 1.3 mg/dL (0.7-1.3) 09/20/24 03:10
Glucose 96 mg/dl (70-99) 09/20/24 03:10
Vital Signs and I&O:
Vital Signs
Temp Pulse Resp BP Pulse Ox
98.3 F 89 24 135/53 96
09/20/24 12:00 09/20/24 12:00 09/20/24 12:00 09/20/24 11:41 09/20/24 12:00
Vital Signs
Temp Pulse Resp BP Pulse Ox
98.3 F 89 24 135/53 96
09/20/24 12:00 09/20/24 12:00 09/20/24 12:00 09/20/24 11:41 09/20/24 12:00
Intake & Output
09/18/24 09/19/24 09/20/24 09/21/24
07:59 07:59 07:59 07:59
Intake Total 528 / 528 1489.5 / 1489.5 284.8 / 284.8
Output Total 1200 / 1200 275 / 275
Balance 528 / 528 289.5 / 289.5 9.8 / 9.8
Physical Exam
Physical Exam
GEN: No distress, awake, alert, oriented x3. sitting in chair
HEENT: supple, anicteric, mmm, eomi
LUNGS: CTA B/L, no wheezes
CV: Reg, S1/S2, no murmur
EXT: No cyanosis, clubbing, edema
NEURO: Gross non-focal
SKIN: Warm, pink, dry. No rash. Sternotomy incision c/d/i. pressure dressing to top 1/3 of incision
[2024-09-20 13:58] LABS: Glucose - Point of Care 133 mg/dl (70-99)
--- NOTE | 2024-09-20 13:58 | CM ---
[facility] his co pay is $140/month, he is agreeable to this cost.
[2024-09-20] MEDS: FERRLECIT 110 MG IV (14:20)
--- NOTE | 2024-09-20 14:56 | PTCARENOTE ---
Patient back to bed with Ax2. Pleural CT removed per order, patient tolerated well. Dressing applied, CDI, wires wrapped. Jerome care completed, leg wrap removed per protocol, and new dressing applied to known sternal hematoma site.
--- NOTE | 2024-09-20 16:00 | PTCARENOTE ---
Patient OOB to chair with Ax2. NSR/SB 1st degree AVB in the 50s-60s + rub, 95% RA. Insulin gtt and KVO infusing per order, see titrations for details. All needs met at this time, call izaguirre within reach.
[2024-09-20 16:15] LABS: Glucose - Point of Care 133 mg/dl (70-99)
[2024-09-20] MEDS: CRESTOR 40 MG PO (17:13)
[2024-09-20] MEDS: NOVOLOG FLEXPEN 4 UNITS SC (17:55)
[2024-09-20 18:49] LABS: Glucose - Point of Care 135 mg/dl (70-99)
[2024-09-20 18:49] LABS: Glucose - Point of Care 139 mg/dl (70-99)
[2024-09-20 19:15] LABS: Glucose - Point of Care 140 mg/dl (70-99)
--- NOTE | 2024-09-20 19:17 | PTCARENOTE ---
Handoff report given to nightshift RN. Pt Aox4, NSR/SB (50s-60s) on tele, satting 90s RA, VSS. Pt OOB in chair at this time. At 1800, UO was 10 for the hour, NEGATIVE NOTCHER made aware, no new orders at this time, instructed to see what next hour was, handed off
in report. KVO and insulin gt infusing per order, see titrations for details. All needs met at this time, call izaguirre within reach.
[2024-09-20] MEDS: ALBUMIN 5% 250 IV (19:30)
[2024-09-20 19:52] LABS: Mixed Venous O2 Saturation 65.7 %
[2024-09-20 20:00] LABS: Blood Urea Nitrogen 31 mg/dl (9-20); Calcium 9.3 mg/dl (8.4-10.2); Carbon Dioxide 26 mmol/L (22-30); Chloride 106 mmol/L (98-107); Estimated Creatinine Clearance 41 ml/min; Glucose 129 mg/dl (70-99); Potassium 4.4 mmol/L (3.5-5.1); Sodium 140 mmol/L (135-145); eGFR 42.49
--- NOTE | 2024-09-20 20:00 | PTCARENOTE ---
Assumed care of the patient at 1900. Patient OOB to chair, AOx3, [place], c/o some sternal discomfort. Heart tones audible, rub auscultated, v wire present, insulted, pacer box powered on, see worklist for settings; +1 B/L lower extremity edema. Lungs
diminished throughout, CTx2 to -20 cm wall suction draining serosanguineous drainage, no air leak, tidaling, or crepitus noted. Hypoactive BS, abdomen SNT. Jerome present with low/no hourly UOP. BNP sent and albumin added, see MAR. All surgical sites
stable, generalized ecchymosis. RIJ cordis/PIV x1. See nursing worklist for additional interventions. Patient helped back to bed with an assist of 2, call izaguirre within reach, updated on POC, assessment of needs ongoing.
[2024-09-20 20:10] LABS: Glucose - Point of Care 126 mg/dl (70-99)
[2024-09-20] MEDS: TOPROL XL PO (20:14)
[2024-09-20] MEDS: NORVASC 5 MG PO (20:18)
[2024-09-20 20:59] LABS: Glucose - Point of Care 127 mg/dl (70-99)
[2024-09-20] MEDS: FLEXBUMIN 50 IV (21:24)
[2024-09-20 23:01] LABS: Glucose - Point of Care 91 mg/dl (70-99)
[2024-09-21] VITALS (28 sets, daily range): BP systolic 115–153; BP diastolic 45–65; PULSE 69; O2SAT 93–95; BMI 32.3
--- NOTE | 2024-09-21 | PTCARENOTE ---
Assessment unchanged, patient sleeping between care. Washed with CHG, crabtree care completed, lead stickers changed, made comfortable in bed, call izaguirre within reach.
[2024-09-21 01:07] LABS: Glucose - Point of Care 103 mg/dl (70-99)
[2024-09-21 03:03] LABS: Glucose - Point of Care 97 mg/dl (70-99)
--- NOTE | 2024-09-21 04:00 | PTCARENOTE ---
Patient placed on 2LNC satting 96%+, sleeping soundly between care, call izaguirre within reach.
[2024-09-21 04:37] LABS: Hematocrit 27.1 % (39.0-52.0); Hemoglobin 9.2 g/dL (13.0-18.0); Mean Corp Hgb Conc. 33.9 g/dL (33.0-37.0); Mean Corpuscular Hgb 32.4 pg (27.0-31.0); Mean Corpuscular Volume 95.4 fL (80.0-94.0); Mean Platelet Volume 11.2 fL (7.4-10.4); Platelet Count 141 10^3/uL (130-400); Red Blood Cell Count 2.84 10^6/uL (4.70-6.10); Red Cell Dist. Width 13.2 % (11.5-14.5); White Blood Cell Count 11.7 10^3/uL (4.8-10.8)
[2024-09-21 04:59] LABS: Blood Urea Nitrogen 32 mg/dl (9-20); Calcium 9.1 mg/dl (8.4-10.2); Carbon Dioxide 27 mmol/L (22-30); Chloride 106 mmol/L (98-107); Estimated Creatinine Clearance 44 ml/min; Glucose 92 mg/dl (70-99); Magnesium 2.4 mg/dl (1.6-2.3); Potassium 4.2 mmol/L (3.5-5.1); Sodium 142 mmol/L (135-145); eGFR 45.91
[2024-09-21 05:18] LABS: Glucose - Point of Care 99 mg/dl (70-99)
[2024-09-21] MEDS: FLEXBUMIN 50 IV ×2 (05:19→13:11)
[2024-09-21] MEDS: TYLENOL 1000 MG PO ×3 (06:21→23:48)
[2024-09-21 07:07] LABS: Glucose - Point of Care 97 mg/dl (70-99)
--- NOTE | 2024-09-21 07:18 | W.PN.CT ---
Today's Communication / Plan
-
-pod #2
-no significant issues overnight
-mVO2 65.7 last night
-low UO last night, improved with 250 Albumin. Started 25% Albumin x3
-follow Cr - 1.5 today (1.6 on 09/20 and 1.3 preop)
-CT outputs: 2 meds 110/250 in 12/24 hrs
-monitor hr - sinus sharlene 50s
-intolerance to statins - started on Crestor postop
-current meds (ASA, Plavix, Crestor, Norvasc, Amio, Toprol, Protonix).
-encourage IS, OOB
Assessment / Plan
-
-s/p CABG x 4 (In situ AMATO to LAD, Ao to RSVG to OM1, Ao to RSVG to Diag, Ao to RSVG to RPDA); Left atrial appendage exclusion [35 mm clip] by Dr. William on 09/19/24, pod #2
-Intraop [facility]: LVEF was 40 to 45% preop and postop with no new regional wall motion abnormalities
-Subacute Anterior [place]
-[place]
-Ischemic cardiomyopathy, EF 40-45%
-MV CAD by cath with culprit mid LAD lesion
-Intolerance of multiple statins (describes generalized myalgia)
-HTN
-HLD
-T2DM (hgb A1C 6.7, on insulin)
-Class 1 obesity (BMI 31.6)
-CKD3a (Cr 1.3 preop)
-Prostate Cancer S/P prostatectomy (07/2023)
-Meniere's Disease/hearing loss
-Cervical spine disease C6-C7 w/radiculopathy
-S/P vocal cord injection for laryngitis/hoarseness
-S/P Left rotator cuff repair
-S/P bilateral cataracts
-Preexisting 1st degree AVB
-Acute postop blood loss anemia - stable, no transfusion
-Acute postop thrombocytopenia
-Acute postop atelectasis
-Acute postop hypovolemia with subsequent hypervolemia
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
Discussed patient care with: Nursing and Care Team
Subjective
-
Date of Service: September 21, 2024
Objective Data
-
PT 17.8 Sec (11.4-14.6) H 09/19/24 11:13
INR 1.42 09/19/24 11:13
APTT Cancelled 09/19/24 11:30
Vital Signs
Vital Signs
Temp Pulse Resp BP Pulse Ox
98.8 F 58 18 123/53 92
09/20/24 23:00 09/20/24 23:00 09/20/24 23:00 09/20/24 23:00 09/20/24 23:00
CT Intake/Output/Weight
09/20/24 09/20/24 09/21/24
06:59 18:59 06:59
Intake Total 227.9 / 1468.8 506.3 / 1150.1 643.8 / 1150.1
Output Total 470 / 1175 555 / 693 138 / 693
Balance -242.1 / 293.8 -48.7 / 457.1 505.8 / 457.1
SaO2: 92
Physical Exam
-
General: Awake and AOx3
Cardiovascular: Regular rate & rhythm, No Murmurs and No Rub
Respiratory: Decreased Breath Sounds
Sternum: Stable
Incision: Clean, Dry and Intact
Abdomen: soft, nontender, nondistended, + decreased bowel sounds
Extremities: No Edema
Data Reviewed
-
Lab Results: Results Reviewed
Medications: Active Meds Reviewed
Chest X-Ray: Report Reviewed and Image Reviewed
ECG: Report Reviewed and Image Reviewed
[2024-09-21] MEDS: MAGNESIUM OXIDE PO (07:45)
--- NOTE | 2024-09-21 08:00 | PTCARENOTE ---
Patient received from metal mover RN; AAOx3, responds spontaneously to RN and follows commands; [place]; VSS; SR with 1st AV block; Friction rub present; Epicardial V-wire insulated; +1 DP pulses and +2 radial pulses; Shallow respirations;
Non-productive, occasional cough; Lungs diminished at bases; SpO2 91-94% on RA; IS 750 ml; CTx2 connected to -20 cm wall suction draining serosanguineous drainage; Jerome catheter draining clear, yellow urine; Surgical sites intact; PIV x1 - #20 left
forearm with insulin infusing, RIJ Cordis with KVO infusing - see nursing flowsheets for further details; See nursing documentation for further information.
[2024-09-21 08:03] LABS: Glucose - Point of Care 120 mg/dl (70-99)
[2024-09-21] MEDS: LANTUS 0.14 UNITS SC (08:26)
[2024-09-21] MEDS: PROTONIX 40 MG PO (08:26)
[2024-09-21] MEDS: SENOKOT-S 1 TABLET PO ×2 (08:26→19:54)
[2024-09-21] MEDS: DETROL LA 4 MG PO (08:26)
[2024-09-21] MEDS: FARXIGA 10 MG PO (08:26)
[2024-09-21] MEDS: NEURONTIN 100 MG PO ×3 (08:27→23:48)
[2024-09-21] MEDS: TOPROL XL 12.5 MG PO ×2 (08:27→19:54)
[2024-09-21] MEDS: PEPCID 20 MG PO (08:27)
[2024-09-21] MEDS: BACTROBAN 2% OINTMENT 1 APPLIC NASAL ×2 (08:27→19:53)
[2024-09-21] MEDS: NORVASC 5 MG PO ×2 (08:27→19:54)
[2024-09-21] MEDS: LOW STRENGTH ASPIRIN 81 MG PO (08:27)
[2024-09-21] MEDS: PLAVIX 75 MG PO (08:27)
--- NOTE | 2024-09-21 08:56 | W.PN.CARDCBS ---
Today's Communication / Plan
-
Stable cardiology status
Remains in sinus rhythm
Impression / Plan
-
PCP: Raquel Correia MD
CDY: Jaylen Webster MD
IMPRESSION:
s/p CABG x4 In situ AMATO to LAD, Ao to RSVG to OM1, Ao to RSVG to Diag, Ao to RSVG to RPDA, SAILAJA clip 09/19/24
Subacute Anterior PA
Ischemic cardiomyopathy, EF 40-45%
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
HTN
HLD
DM
CKD3a
Prostate Cancer w/prostatectomy (07/2023)
Meniere's Disease/hearing loss
Cervical disc disease C6-C7 w/radiculopathy
Echo 09/13- LVEF 40-45%, distal septal/apical/inferoapical HK
09/19/24: EF 40-45% [facility] by [facility]
PLAN:
Patient was admitted to [facility] initially with evidence of subacute anterior PA and transferred to [facility] for cardiac catheterization completed 09/16/2024. Cath showed three-vessel obstructive coronary disease with clear
culprit being mid LAD lesion.
Doing very well status post CABG on 09/19/2024
Remains in sinus rhythm
Continue Plavix status post PA
Continue treatment for CHF/cardiomyopathy with Toprol, Farxiga
Might consider eventual ROGELIO inhibitor but creatinine 1.5 on 09/21
-Follow up w/Dr. Webster, ATC at d/c
-d/w nursing
HPI: This is an 84 y/o white male, PMH sig for DM, CKD3a, HLD, HTN, prostate cancer.
Seen in outpt cardiology setting on 09/13 for 1 week history intermittent chest pain radiating to LUE, associated dyspnea, lightheadedness, belching. EKG indicated that he likely suffered an acute PA earlier in the week, with anterior Q waves and
marked anterolateral ST/T wave abnormalities, for which he had not sought urgent medical attention. He was sent to [facility] ER from the office.
First HS troponin was peak at 2165, with corresponding CK 237/MB 13.8. Started on IV Heparin, aspirin. Transferred today for [facility].
Progress Note - Air Technician
Subjective
Date of Service: September 21, 2024
No chest pain or shortness of breath
Objective
Labs:
09/21/24 04:26
09/21/24 04:26
Labs
Hgb 9.2 g/dL (13.0-18.0) L 09/21/24 04:26
Hct 27.1 % (39.0-52.0) L 09/21/24 04:26
Plt Count 141 10^3/uL (130-400) 09/21/24 04:26
PT 17.8 Sec (11.4-14.6) H 09/19/24 11:13
INR 1.42 09/19/24 11:13
APTT Cancelled 09/19/24 11:30
Sodium 142 mmol/L (135-145) 09/21/24 04:26
Potassium 4.2 mmol/L (3.5-5.1) 09/21/24 04:26
BUN 32 mg/dl (9-20) H 09/21/24 04:26
Creatinine 1.5 mg/dL (0.7-1.3) H 09/21/24 04:26
Glucose 92 mg/dl (70-99) 09/21/24 04:26
Vital Signs and I&O:
Vital Signs
Temp Pulse Resp BP Pulse Ox
98.8 F 72 16 133/57 91
09/21/24 08:00 09/21/24 08:00 09/21/24 08:00 09/21/24 08:00 09/21/24 08:00
Vital Signs
Temp Pulse Resp BP Pulse Ox
98.8 F 72 16 133/57 91
09/21/24 08:00 09/21/24 08:00 09/21/24 08:00 09/21/24 08:00 09/21/24 08:00
Intake & Output
09/19/24 09/20/24 09/21/24 09/22/24
06:59 06:59 06:59 06:59
Intake Total 528 / 528 1448.1 / 1468.8 1256.3 / 1317.1 71.3 / 71.3
Output Total 1130 / 1175 903 / 933 65 / 65
Balance 528 / 528 318.1 / 293.8 353.3 / 384.1 6.3 / 6.3
Physical Exam
Physical Exam
General: Well developed, well nourished in NAD.
Neck: Supple, no JVD, HJR, carotids +2 B/L, no bruits bilaterally.
Heart: Non displaced PMI, RRR, no murmurs, No S3, S4, no rubs.
Lungs: Scattered rhonchi
Sternal dressings noted
Extremities: No clubbing, cyanosis or edema bilaterally.
Neuro: Grossly nonfocal, awake, alert and oriented x3.
[2024-09-21 09:15] LABS: Glucose - Point of Care 122 mg/dl (70-99)
[2024-09-21] MEDS: NOVOLOG FLEXPEN SC (09:16)
[2024-09-21 10:09] LABS: Glucose - Point of Care 180 mg/dl (70-99)
[2024-09-21] MEDS: GLUCOTROL 10 MG PO (10:56)
[2024-09-21] MEDS: LASIX 40 MG IV (10:56)
[2024-09-21] MEDS: NSS 500 IV (10:56)
[2024-09-21 11:05] LABS: Glucose - Point of Care 191 mg/dl (70-99)
[2024-09-21 12:07] LABS: Glucose - Point of Care 185 mg/dl (70-99)
--- NOTE | 2024-09-21 12:30 | PTCARENOTE ---
IV Lasix 40 mg ordered and given; Chest tubes discontinued; VSS; No complications noted throughout; Patient with no complaints at this time and resting comfortably in bed
[2024-09-21] MEDS: NOVOLOG FLEXPEN-MODERATE RESISTANCE 1 UNITS SC ×2 (12:36→17:30)
[2024-09-21] MEDS: NOVOLOG FLEXPEN 4 UNITS SC (12:37)
[2024-09-21 13:10] LABS: Glucose - Point of Care 124 mg/dl (70-99)
[2024-09-21] MEDS: FERRLECIT 110 MG IV (14:26)
--- NOTE | 2024-09-21 15:57 | PTCARENOTE ---
Insulin gtt discontinued; Patient ambulating in hallways with RN
[2024-09-21] MEDS: GLUCOTROL 5 MG PO (16:08)
[2024-09-21] MEDS: CRESTOR 40 MG PO (17:24)
[2024-09-21 17:33] LABS: Glucose - Point of Care 169 mg/dl (70-99)
--- NOTE | 2024-09-21 18:15 | PTCARENOTE ---
Patient urinated around crabtree catheter while laying in bed - NOE Lerma notified and aware; Orders given to discontinue crabtree catheter; Due to void at 8980
[2024-09-21] MEDS: ROXICODONE 2.5 MG PO (19:53)
[2024-09-21] MEDS: MAGNESIUM OXIDE 500 MG PO (19:53)
--- NOTE | 2024-09-21 20:00 | PTCARENOTE ---
Assumed care of patient. Walking rounds completed with previous RN. Pt assisted to the bathroom. Voided 150mL merry urine in the hat. +gas. Assisted back to bed. Alert & oriented x4. Rates left sided low back/flank pain 10 see MAR. Denies
shortness of breath and nausea. 1-2 assist in the room. QUIROGA with equal strength throughout. SR with 1st degree AVB on tele with rate in the 60s. BP 128/60. Heart tones audible. Bilateral radial pulses palpable. Bilateral DP pulses present via
doppler. Lower extremity +1 edema noted. Epicardial v-wire insulated. POX 95% on 2L NC. Lungs diminished in the bases. IS encouraged-500ml achieved. No cough noted. Abdomen soft, round, nontender. +BS. +gas. Pt voiding merry urine in the toilet post
crabtree removal. Sternal incision approximated, closed with skin glue. Superior aspect of incision ecchymotic with pressure dressing intact. Old chest tube sites covered, dressing CDI. Right groin site approximated, LUANN, ecchymotic. Right SVG harvest
approximated with skin glue, LUANN. Left forearm skin tear covered, CDI. Right IJ cordis intact. Right forearm 20g PIV intact. See MAR for medication administration. See worklist for complete nursing assessment. Plan of care reviewed and patient in
agreement.
--- NOTE | 2024-09-21 23:30 | PTCARENOTE ---
Pt reassessed. VSS. Surgical sites unchanged. Pt resting in bed. No acute changes from previous assessment.
[2024-09-21 23:50] LABS: Glucose - Point of Care 146 mg/dl (70-99)
[2024-09-22] VITALS (12 sets, daily range): BP systolic 128–151; BP diastolic 53–67; PULSE 73; O2SAT 96; BMI 31.9
--- NOTE | 2024-09-22 00:54 | W.PN.CT ---
Today's Communication / Plan
-
-pod #3
-no significant issues overnight, no bradycardia
-crabtree out, voiding
-diuresed yesterday, UOP 675 + voids in 24 hrs
-intolerance to statins - started on Crestor postop
-current meds (ASA, Plavix, Crestor, Norvasc, Amio, Toprol, Protonix)
-encourage IS, OOB
Assessment / Plan
-
-s/p CABG x 4 (In situ AMATO to LAD, Ao to RSVG to OM1, Ao to RSVG to Diag, Ao to RSVG to RPDA); Left atrial appendage exclusion [35 mm clip] by Dr. William on 09/19/24, pod #3
-Intraop [facility]: LVEF was 40 to 45% preop and postop with no new regional wall motion abnormalities
-Subacute Anterior [place]
-[place]
-Ischemic cardiomyopathy, EF 40-45%
-MV CAD by cath with culprit mid LAD lesion
-Intolerance of multiple statins (describes generalized myalgia)
-HTN
-HLD
-T2DM (hgb A1C 6.7, on insulin)
-Class 1 obesity (BMI 31.6)
-CKD3a (Cr 1.3 preop)
-Prostate Cancer S/P prostatectomy (07/2023)
-Meniere's Disease/hearing loss
-Cervical spine disease C6-C7 w/radiculopathy
-S/P vocal cord injection for laryngitis/hoarseness
-S/P Left rotator cuff repair
-S/P bilateral cataracts
-Preexisting 1st degree AVB
-Acute postop blood loss anemia - stable, no transfusion
-Acute postop thrombocytopenia
-Acute postop atelectasis
-Acute postop hypovolemia with subsequent hypervolemia
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
Subjective
-
Date of Service: September 22, 2024
Objective Data
-
PT 17.8 Sec (11.4-14.6) H 09/19/24 11:13
INR 1.42 09/19/24 11:13
APTT Cancelled 09/19/24 11:30
Vital Signs
Vital Signs
Temp Pulse Resp BP Pulse Ox
99.2 F 69 18 128/60 95
09/21/24 20:00 09/21/24 20:00 09/21/24 20:00 09/21/24 20:00 09/21/24 20:00
CT Intake/Output/Weight
09/21/24 09/21/24 09/22/24
06:59 18:59 06:59
Intake Total 750.0 / 1317.1 695.7 / 945.7 250 / 945.7
Output Total 348 / 933 1295 / 1870 575 / 1870
Balance 402.0 / 384.1 -599.3 / -924.3 -325 / -924.3
SaO2: 95
Physical Exam
-
General: Awake and Oriented
Cardiovascular: Regular rate & rhythm, No Murmurs and No Rub
Respiratory: Clear and Decreased Breath Sounds
Sternum: Stable
Incision: Clean, Dry and Intact
Extremities: No Erythema
Data Reviewed
-
Lab Results: Results Reviewed
Medications: Active Meds Reviewed
Chest X-Ray: Report Reviewed
ECG: Report Reviewed
--- NOTE | 2024-09-22 04:00 | PTCARENOTE ---
Pt reassessed. Assisted to the bathroom. Labs obtained. VSS. Surgical sites stable. Labs and Am weight obtained.
[2024-09-22 04:43] LABS: Hematocrit 29.1 % (39.0-52.0); Hemoglobin 9.8 g/dL (13.0-18.0); Mean Corp Hgb Conc. 33.7 g/dL (33.0-37.0); Mean Corpuscular Volume 95.1 fL (80.0-94.0); Mean Platelet Volume 11.3 fL (7.4-10.4); Platelet Count 198 10^3/uL (130-400); Red Blood Cell Count 3.06 10^6/uL (4.70-6.10); Red Cell Dist. Width 13.6 % (11.5-14.5); White Blood Cell Count 14.7 10^3/uL (4.8-10.8)
[2024-09-22 04:54] LABS: Blood Urea Nitrogen 35 mg/dl (9-20); Calcium 9.5 mg/dl (8.4-10.2); Carbon Dioxide 24 mmol/L (22-30); Chloride 105 mmol/L (98-107); Estimated Creatinine Clearance 44 ml/min; Glucose 146 mg/dl (70-99); Magnesium 2.3 mg/dl (1.6-2.3); Potassium 4.2 mmol/L (3.5-5.1); Sodium 141 mmol/L (135-145); eGFR 45.91
[2024-09-22] MEDS: TYLENOL 1000 MG PO ×3 (06:35→21:01)
[2024-09-22 08:41] LABS: Glucose - Point of Care 142 mg/dl (70-99)
[2024-09-22] MEDS: NOVOLOG FLEXPEN-MODERATE RESISTANCE SC (08:49)
[2024-09-22] MEDS: LOW STRENGTH ASPIRIN 81 MG PO (08:50)
[2024-09-22] MEDS: NORVASC 5 MG PO ×2 (08:50→19:49)
[2024-09-22] MEDS: NEURONTIN 100 MG PO ×3 (08:50→21:01)
[2024-09-22] MEDS: PEPCID 20 MG PO (08:51)
[2024-09-22] MEDS: SENOKOT-S 1 TABLET PO ×2 (08:51→19:49)
[2024-09-22] MEDS: PROTONIX 40 MG PO (08:51)
[2024-09-22] MEDS: GLUCOTROL 10 MG PO (08:51)
[2024-09-22] MEDS: TOPROL XL 12.5 MG PO ×2 (08:51→12:13)
[2024-09-22] MEDS: PLAVIX 75 MG PO (08:51)
[2024-09-22] MEDS: FARXIGA 10 MG PO (08:52)
[2024-09-22] MEDS: MAGNESIUM OXIDE 500 MG PO ×2 (08:52→19:49)
[2024-09-22] MEDS: DETROL LA 4 MG PO (08:52)
[2024-09-22] MEDS: BACTROBAN 2% OINTMENT 1 APPLIC NASAL ×2 (08:52→19:49)
[2024-09-22] MEDS: LANTUS 0.14 UNITS SC (09:18)
--- NOTE | 2024-09-22 09:29 | PTCARENOTE ---
Patient care assumed from nightshift RN. Patient fully alert and oriented. Got patient OOB with assist x1 to bathroom. Voided 150cc and performed self a.m care without difficulty. Patient afebrile. Denies pain. Denies shortness of breath. On room
air, O2 sat 94%. OOB in chair, ordered breakfast. BP 151/62, scheduled PO meds given. NSR w/ first degree block, rate 60-70s. Radial pulses palpable bilaterally, doppler required for pedal pulses bilaterally. +1 lower extremity edema, non-pitting.
RIJ cordis present with maintenance fluids. I.S and ambulation encouraged. Surgical dressings clean, dry, intact.
[2024-09-22] MEDS: LASIX 40 MG PO (10:07)
[2024-09-22] MEDS: NSS IV (10:16)
[2024-09-22 12:18] LABS: Glucose - Point of Care 216 mg/dl (70-99)
[2024-09-22] MEDS: NOVOLOG FLEXPEN-MODERATE RESISTANCE 3 UNITS SC (12:18)
--- NOTE | 2024-09-22 13:18 | PTCARENOTE ---
Patient vital signs stable. OOB in chair for lunch. Ambulated around unit in halls multiple times, well tolerated. Lasix 40mg PO given, voiding in bathroom, see I&Os for output. I.S encouraged. Denies pain.
[2024-09-22] MEDS: FERRLECIT 110 MG IV (13:51)
[2024-09-22 16:38] LABS: Glucose - Point of Care 186 mg/dl (70-99)
[2024-09-22] MEDS: GLUCOTROL 5 MG PO (16:44)
[2024-09-22] MEDS: NOVOLOG FLEXPEN-MODERATE RESISTANCE 1 UNITS SC (16:44)
--- NOTE | 2024-09-22 17:16 | PTCARENOTE ---
Patient OOB in chair for dinner. Vital signs remain stable. Denies pain. RIJ Cordis discontinued. I.S and ambulation encouraged.
[2024-09-22] MEDS: CRESTOR 40 MG PO (17:56)
[2024-09-22] MEDS: TOPROL XL 25 MG PO (19:49)
--- NOTE | 2024-09-22 20:00 | PTCARENOTE ---
report received from previous RN, walking rounds done. pt in bed, AAOx4. pt denies any pain. VSS. SR w 1st degree AVB, HR 60s. B/L radial and DP pulses palpable. epicardial wires intact and patent. B/L breath sounds present. POX 94% on room air.
bowel sounds present. pt voids without difficulty. PIV intact and patent. all surgical sites stable. see worklist for full assessment, VS, and interventions. pt resting comfortably w call light in reach.
[2024-09-23] VITALS (7 sets, daily range): BP systolic 122–151; BP diastolic 56–65; PULSE 78; O2SAT 97; BMI 31.9
--- NOTE | 2024-09-23 00:49 | W.PN.CT ---
Today's Communication / Plan
-
-pod #4
-no significant issues overnight, no bradycardia
-BB increased yesterday, tolerated diuresis
-intolerance to statins - started on Crestor postop
-current meds (ASA, Plavix, Crestor, Norvasc, Amio, Toprol, Protonix)
-encourage IS, OOB
-DC planning, home vs rehab
Assessment / Plan
-
-s/p CABG x 4 (In situ AMATO to LAD, Ao to RSVG to OM1, Ao to RSVG to Diag, Ao to RSVG to RPDA); Left atrial appendage exclusion [35 mm clip] by Dr. William on 09/19/24, pod #4
-Intraop [facility]: LVEF was 40 to 45% preop and postop with no new regional wall motion abnormalities
-Subacute Anterior [place]
-[place]
-Ischemic cardiomyopathy, EF 40-45%
-MV CAD by cath with culprit mid LAD lesion
-Intolerance of multiple statins (describes generalized myalgia)
-HTN
-HLD
-T2DM (hgb A1C 6.7, on insulin)
-Class 1 obesity (BMI 31.6)
-CKD3a (Cr 1.3 preop)
-Prostate Cancer S/P prostatectomy (07/2023)
-Meniere's Disease/hearing loss
-Cervical spine disease C6-C7 w/radiculopathy
-S/P vocal cord injection for laryngitis/hoarseness
-S/P Left rotator cuff repair
-S/P bilateral cataracts
-Preexisting 1st degree AVB
-Acute postop blood loss anemia - stable, no transfusion
-Acute postop thrombocytopenia
-Acute postop atelectasis
-Acute postop hypovolemia with subsequent hypervolemia
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
Subjective
-
Date of Service: September 23, 2024
Objective Data
-
PT 17.8 Sec (11.4-14.6) H 09/19/24 11:13
INR 1.42 09/19/24 11:13
APTT Cancelled 09/19/24 11:30
Vital Signs
Vital Signs
Temp Pulse Resp BP Pulse Ox
98.2 F 64 17 130/59 93
09/22/24 23:01 09/22/24 23:01 09/22/24 23:01 09/22/24 23:01 09/22/24 23:01
CT Intake/Output/Weight
09/22/24 09/22/24 09/23/24
06:59 18:59 06:59
Intake Total 360 / 1055.7
Output Total 675 / 1970 450 / 450
Balance -315 / -914.3 -450 / -450
SaO2: 93
Physical Exam
-
General: Awake, Oriented and AOx3
Cardiovascular: Regular rate & rhythm and No Murmurs
Respiratory: Clear, Equal and Decreased Breath Sounds
Sternum: Stable
Incision: Clean and Dry
Extremities: No Edema and No Erythema
Data Reviewed
-
Lab Results: Results Reviewed
Medications: Active Meds Reviewed
Chest X-Ray: Report Reviewed
ECG: Report Reviewed
--- NOTE | 2024-09-23 03:40 | PTCARENOTE ---
VSS. no changes in assessment. pt sleeping between care.
[2024-09-23] MEDS: TYLENOL 1000 MG PO (06:12)
[2024-09-23 06:30] LABS: Hematocrit 28.3 % (39.0-52.0); Hemoglobin 9.7 g/dL (13.0-18.0); Mean Corp Hgb Conc. 34.3 g/dL (33.0-37.0); Mean Corpuscular Hgb 32.4 pg (27.0-31.0); Mean Corpuscular Volume 94.6 fL (80.0-94.0); Mean Platelet Volume 10.8 fL (7.4-10.4); Platelet Count 168 10^3/uL (130-400); Red Blood Cell Count 2.99 10^6/uL (4.70-6.10); Red Cell Dist. Width 13.4 % (11.5-14.5); White Blood Cell Count 8.7 10^3/uL (4.8-10.8)
[2024-09-23 07:04] LABS: Blood Urea Nitrogen 36 mg/dl (9-20); Calcium 8.9 mg/dl (8.4-10.2); Carbon Dioxide 29 mmol/L (22-30); Chloride 104 mmol/L (98-107); Estimated Creatinine Clearance 51 ml/min; Glucose 112 mg/dl (70-99); Magnesium 2.3 mg/dl (1.6-2.3); Potassium 3.9 mmol/L (3.5-5.1); Sodium 140 mmol/L (135-145); eGFR 54.51
[2024-09-23] MEDS: NOVOLOG FLEXPEN-MODERATE RESISTANCE SC (08:33)
[2024-09-23] MEDS: LANTUS 0.14 UNITS SC (08:33)
[2024-09-23] MEDS: NEURONTIN 100 MG PO (08:34)
[2024-09-23] MEDS: PLAVIX 75 MG PO (08:34)
[2024-09-23] MEDS: FARXIGA 10 MG PO (08:34)
[2024-09-23] MEDS: SENOKOT-S 1 TABLET PO (08:34)
[2024-09-23] MEDS: MAGNESIUM OXIDE 500 MG PO (08:34)
[2024-09-23] MEDS: LOW STRENGTH ASPIRIN 81 MG PO (08:34)
[2024-09-23] MEDS: PEPCID 20 MG PO (08:34)
[2024-09-23] MEDS: DETROL LA 4 MG PO (08:34)
[2024-09-23] MEDS: NORVASC 5 MG PO (08:34)
[2024-09-23] MEDS: TOPROL XL 25 MG PO (08:34)
[2024-09-23] MEDS: PROTONIX 40 MG PO (08:34)
[2024-09-23] MEDS: GLUCOTROL 10 MG PO (08:34)
[2024-09-23] MEDS: BACTROBAN 2% OINTMENT 1 APPLIC NASAL (08:35)
[2024-09-23] MEDS: NSS IV (08:35)
--- NOTE | 2024-09-23 08:35 | PN.DE.MGMTRT ---
Insulin Management
- -
09/23/24: Diabetes Management Follow up
Patient admitted 09/16 from [facility] for chest pain. PMH Prostatitis, malignant neoplasm prostate, neuropathy, elevated LFT's, HCL, Meniere's disease, 3b CKD. Prior to admission was taking Actos 30 mg @ HS, degludec 14 units daily, 10 mg
Glipizide in AM and 5 mg @ HS. ~ 1 1/2 weeks ago was started on aspart before dinner. A1C 6.7, cr 1.1, eGFR > 60. Patient states he sees Dr. Segura, endocrine for ongoing diabetes management. He has a Liz CGM.
Pt is now POD # 4 s/p CABG x 4, doing well, awake, alert, oriented, sitting up in chair, able to discuss diabetes care plan. at bedside.
He was transitioned off Glycemic protocol to SQ insulin and oral regimen on 09/21
Glucose stable since transitioning off drip. Pt has been receiving AM Lantus 14 units. 09/22 premeal 142 to 216, FBG 112 V this AM.
Will increase AM Lantus dose to 16 units. Cont Farxiga 10mg daily, Glipizide 10 mg in AM and 5 mg PM and moderate corrective insulin with meals upon transition
Discussed with pt and instructed him to keep a glucose log and closely monitor blood sugars at home. He will call his PCP and report any blood sugars <710 so insulin dose can be adjusted. Discussed with nurse. Will cont to follow.
Diabetes History
- -
Type of Diabetes: 2 requiring insulin
Pre-Admission Diabetes Regimen
09/23/24
06:17
Creatinine 1.3
Lab Results
Hemoglobin A1c 6.7 % (4.0-5.6) H 09/17/24 02:05
Insulin Pump Settings
IP Diabetes Regimen
09/22/24 09/22/24 09/22/24
08:40 12:17 16:37
Glucose
POC Glucose 142 H 216 H 186 H
09/23/24
06:17
Glucose 112 H
POC Glucose
Meal type: Dinner
Amount consumed: 100%
Patient Education
--- NOTE | 2024-09-23 08:58 | PTCARENOTE ---
assumed care of pt from previous shift RN, sinus rhythm on tele w Hr 80, VSS, insulated wire in place. + peripheral pulses, denies CP. Lungs diminished bilaterally, coughing and deep breathing encouraged. +bs, tolerating PO intake, voids
spontaneously. PIV flushes easily. Surgical sites stable. Plan of care reviewed w the pt and questions encouraged.
--- NOTE | 2024-09-23 12:17 | PTCARENOTE ---
pt ambulating independently, sinus rhythm maintained on tele, vss. pt without complaint.
[2024-09-23 12:32] LABS: Glucose - Point of Care 209 mg/dl (70-99)
[2024-09-23] MEDS: NOVOLOG FLEXPEN-MODERATE RESISTANCE 3 UNITS SC (12:34)
--- NOTE | 2024-09-23 13:36 | CM ---
Reviewed chart. Met with Mr. Souza to review discharge plans. He states he is feeling well and maybe able to go home soon. He states he worked with physical therapy today. He has a walker at home. He states he will sleep in the recliner at
home until he feels stronger. We reviewed a home visit by the Transitional Care Nurse. He is agreeable to a home visit. Prior to admission he resides with his spouse in a two story home with three steps to enter. He has a full flight of steps to
get to bedroom/full bathroom. He has a stair glide to get to the second floor. He states his spouse will be home to assist in his care if needed. Medical work-up in progress. The discharge plan is to return home with his spouse and a home visit by
the Transitional Care Nurse when medically stable.
--- NOTE | 2024-09-23 13:56 | W.PN.CARDCBS ---
Today's Communication / Plan
-
Supportive postop care
Continue rehab efforts
Impression / Plan
-
PCP: Raquel Correia MD
CDY: Jaylen Webster MD
IMPRESSION:
s/p CABG x4 In situ AMATO to LAD, Ao to RSVG to OM1, Ao to RSVG to Diag, Ao to RSVG to RPDA, SAILAJA clip 09/19/24
Subacute Anterior MN
Ischemic cardiomyopathy, EF 40-45%
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
HTN
HLD
DM
CKD3a
Prostate Cancer w/prostatectomy (07/2023)
Meniere's Disease/hearing loss
Cervical disc disease C6-C7 w/radiculopathy
Echo 09/13- LVEF 40-45%, distal septal/apical/inferoapical HK
09/19/24: EF 40-45% [facility]
PLAN:
Patient was admitted to [facility] initially with evidence of subacute anterior MN and transferred to [facility] for cardiac catheterization completed 09/16/2024. Cath showed three-vessel obstructive coronary disease with clear
culprit being mid LAD lesion.
Doing very well status post CABG on 09/19/2024
Remains in sinus rhythm
Continue ASA/Plavix status post MN
Would change outpatient hydrochlorothiazide to Lasix 20 mg daily. If creatinine remains stable would decrease amlodipine and start ROGELIO inhibitor
Would repeat labs in 1 week including BMP
Continue SGLT2 inhibitor, Farxiga [address] surgery, plan for discharge home today
Follow up w/Dr. Webster, ATC at d/c
HPI: This is an 84 y/o white male, PMH sig for DM, CKD3a, HLD, HTN, prostate cancer.
Seen in outpt cardiology setting on 09/13 for 1 week history intermittent chest pain radiating to LUE, associated dyspnea, lightheadedness, belching. EKG indicated that he likely suffered an acute MN earlier in the week, with anterior Q waves and
marked anterolateral ST/T wave abnormalities, for which he had not sought urgent medical attention. He was sent to [facility] ER from the office.
First HS troponin was peak at 2165, with corresponding CK 237/MB 13.8. Started on IV Heparin, aspirin. Transferred today for [facility].
Progress Note - Logistics Tech
Subjective
Date of Service: September 23, 2024
Patient was seen and examined with family members at bedside. Out of bed to chair and feeling well anticipating discharge home today per CT surgery. No chest pain or pressure. No shortness of breath or lightheadedness.
Objective
Labs:
09/23/24 06:17
09/23/24 06:17
Labs
Hgb 9.7 g/dL (13.0-18.0) L 09/23/24 06:17
Hct 28.3 % (39.0-52.0) L 09/23/24 06:17
Plt Count 168 10^3/uL (130-400) 09/23/24 06:17
PT 17.8 Sec (11.4-14.6) H 09/19/24 11:13
INR 1.42 09/19/24 11:13
APTT Cancelled 09/19/24 11:30
Sodium 140 mmol/L (135-145) 09/23/24 06:17
Potassium 3.9 mmol/L (3.5-5.1) 09/23/24 06:17
BUN 36 mg/dl (9-20) H 09/23/24 06:17
Creatinine 1.3 mg/dL (0.7-1.3) 09/23/24 06:17
Glucose 112 mg/dl (70-99) H 09/23/24 06:17
Vital Signs and I&O:
Vital Signs
Temp Pulse Resp BP Pulse Ox
98.2 F 70 16 133/56 94
09/23/24 12:11 09/23/24 12:11 09/23/24 12:11 09/23/24 12:11 09/23/24 12:11
Vital Signs
Temp Pulse Resp BP Pulse Ox
98.2 F 70 16 133/56 94
09/23/24 12:11 09/23/24 12:11 09/23/24 12:11 09/23/24 12:11 09/23/24 12:11
Intake & Output
09/21/24 09/22/24 09/23/24 09/24/24
06:59 06:59 06:59 06:59
Intake Total 1256.3 / 1317.1 1055.7 / 1055.7
Output Total 903 / 933 1970 / 1970 450 / 450
Balance 353.3 / 384.1 -914.3 / -914.3 -450 / -450
Physical Exam
Physical Exam
General: Well developed, well nourished in NAD.
Heart: Regular. Positive S1-S2. No murmurs.
Lungs: Bronchovesicular breath sounds, clear
Sternal dressings noted
Extremities: + edema
--- NOTE | 2024-09-23 13:59 | W.DCSUMMARY ---
Discharge Summary
Discharge Data
Date of Admission: 09/16/24
Date of Discharge: 09/23/24
-
Pending Results: No
Hospital Course
Primary care physician: Raquel Correia
Outpatient cartographic designer: Troy Webster
Inpatient consultants: [facility] cardiology, pulmonary analyst sales, diabetes SUIT ATTENDANT
Procedures:
1. CABG, left atrial appendage clip
Primary Diagnosis:
1. Subacute anterior AK, STEMI
Secondary Diagnoses:
1. Ischemic cardiomyopathy with EF of 40 to 45%
2. Hypertension
3. Hyperlipidemia
4. Diabetes mellitus (A1C 6.7)
5. CKD Stage 3A
6. Hx Prostate cancer status post prostatectomy (2023)
7. Hearing impaired, M�ni�re's disease
8. Hx C 6-7 disc disease with radiculopathy
9. Class I obesity
10. hx vocal cord injection for laryngitis/hoarseness
11. Hx Left rotator cuff repair
12. Preexisting 1st degree AVB
13. Acute postop blood loss anemia�expected
14. Acute postop pulmonary insufficiency following thoracic surgery�expected
15. Acute postop thrombocytopenia-expected
16. Acute post-op hypovolemia followed by hypervolemia-expected
HPI: 84 year old male seen 09/13 by Outpatient cardiology for 1 week history of intermittent chest pain, radiating to LUE w/dyspnea. Ruled in for STEMI by EKG and patient sent to [facility] emergency room. Troponins were elevated and IV Heparin/ASA
initiated.
Hospital course: Patient transferred to 09/16 for left heart cath which reported 3VCAD. Underwent preop diagnostics and underwent CABG x 4 (AMATO to LAD, SVG to D1, SVG to OM, SVG to RPDA), and left atrial appendage exclusion #35mm clip by
Zbigniew William on 09/19/2024. [facility] an ejection fraction of 45-50%. Patient received no intraoperative blood products and returned to CVICU on Levophed, Precedex, and insulin. Patient received 1 L of lactated Ringer's for
expected postoperative hypovolemia. Patient was extubated at 6035. The pleural chest tube was discontinued on postoperative day 1 and patient diuresed with Lasix. Patient was seen in consultation by diabetic nurse practitioner who transition
patient off of pioglitazone and changed Tresiba dose to 16units at bedtime, Farxiga, and continued home glipizide. Plavix and aspirin were initiated. Bladder catheter was removed on postoperative day #2 and remaining 2 mediastinal chest tubes
removed and the patient was diuresed for hypervolemia. He will continue on Lasix 20 mg daily on discharge per cardiology. Tyson did not experience any postoperative arrhythmias and prophylactic amiodarone was discontinued on discharge. Temporary
epicardial ventricular wires were clipped at skin level on day of discharge. Patient helps care for his with Parkinson's disease and was seen by physical therapy who deemed him stable for discharge to home. Patient will be assessed by
transitional nurse for home PT and will follow-up with CT surgery on 10/14/2024.
Home medication changes:
Stop:
Celecoxib
Famotidine>changing to Protonix while on Plavix
Tresiba dose increased to 16u HS
Loratidine
proglitazone
Red yeast rice
Aspart insulin
Hydrochlorothiazide
Discharge Plan
-
Patient Disposition: Home (Routine Discharge)
Discharge Diagnosis/Procedures: CABG x 4, left atrial appendage clip
Condition: Good
Diet: Low Cholesterol, Low Sodium and Diabetic, Carb Controlled
Activity: No strenuous activity
Driving Restrictions: Not until seen by your Dr
Bathing Restrictions: OK to Shower
Blood Work: BMP in 1 week
Other Services: Cardiac Rehab
Specialty Instructions: Weigh Daily- Call MD for wt gain/loss 3 lbs overnight/5 lbs in 1 week
Activity Restrictions/Additional Instructions:
Wound Care Instructions
L arm: clean with saline, vaseline gauze, abd pad and kerlix, change q 2 days and prn drainage.
chest: clean with saline, silicone foam change q 2 days and prn drainage.
Follow up at wound care center, if not healing call for an appointment.
ACTIVITY:
-No strenuous activity: no heavy lifting, pushing, pulling anything over 15 pounds for one month
-continue to use stairs as tolerated
DRIVING RESTRICTIONS:
-No driving for one month or until approved by your surgeon
WOUND CARE:
-Shower daily. Use soap & water.
-No lotions, creams or powders on incision area.
DIET:
-continue a low fat/low cholesterol diet.
-IF you are diabetic, continue carb controlled diet.
CARDIAC REHAB:
-Please make appointment to start in 5-6 weeks with your local hospital program. (See Cardiac Rehabilitation Discharge Booklet).
-Please call [facility] to get scheduled. P: [phone]
-
SPECIALTY INSTRUCTIONS:
-Weigh yourself daily. Call your physician for any weight gain/loss of 3 lbs overnight or 5 lbs in one week.
-REPORT any clicking noise or uneven appearance of your sternum to your surgeon immediately.
-If you smoke, you are instructed to quit. The [place] smoking hotline phone number is [phone]
Referrals:
CT Transitional Care Nurse [Outside] - in one to two days
(
The Cardiothoracic Transitional Care Nurse will call you to set up a visit in 1-2 days.)
Troy Webster MD [Non-Admitting Privileges] - 10/29/24 1:00 pm
Raquel Correia MD [Family Provider] - in four to six weeks (Please make an appointment in four to six weeks. )
Gwendolyn Márquez CRNP [Specified Professional Personl] - 10/14/24 1:15 pm
Prescriptions:
New
aspirin 81 mg Tablet,Chewable
81 mg PO DAILY Qty: 0 0RF
clopidogrel 75 mg Tablet
75 mg PO DAILY Qty: 30 2RF
pantoprazole 40 mg Tablet,Delayed Release (Dr/Ec)
40 mg PO DAILY Qty: 30 2RF
oxycodone 5 mg Tablet
5 mg PO Q4HPRN PRN (Reason: severe pain) Qty: 10 0RF
rosuvastatin 40 mg Tablet
40 mg PO QPM Qty: 30 2RF
dapagliflozin propanediol 10 mg Tablet
10 mg PO DAILY Qty: 30 2RF
furosemide [Lasix] 20 mg tablet
20 mg PO DAILY Qty: 30 0RF
insulin degludec [Tresiba FlexTouch U-100] 100 unit/mL (3 mL) insulin pen
16 unit SC HS Qty: 15 0RF
Continued
glipizide 10 mg Tablet
10 mg PO DAILY
cyanocobalamin (vitamin B-12) [Vitamin B-12] 1,000 mcg Tablet
1,000 mcg PO DAILY
amlodipine 5 mg Tablet
5 mg PO BID
triamcinolone acetonide 0.1 % Cream
1 applic TOPICAL BID
acetaminophen [Tylenol Arthritis Pain] 650 mg Tablet Extended Release
1,300 mg PO Q12H PRN (Reason: pain)
calcium carbonate [Calcium 600] 600 mg calcium (1,500 mg) Tablet
1,200 mg PO DAILY
diazepam 2 mg Tablet
2 mg PO HS PRN (Reason: vertigo)
polyethylene glycol 3350 17 gram/dose Powder
4 g PO DAILY
glipizide 5 mg Tablet
5 mg PO HS
solifenacin 10 mg Tablet
10 mg PO DAILY
ferrous sulfate 27 mg iron Tablet
27 mg PO DAILY
cholecalciferol (vitamin D3) 50 mcg (2,000 unit) Capsule
50 mcg PO DAILY
Metamucil 3.4 gram/5.4 gram Powder
1 tsp PO DAILY
atenolol 25 mg Tablet
25 mg PO BID Qty: 0 0RF
Discontinued
celecoxib 200 mg Capsule
200 mg PO DAILY
famotidine 40 mg Tablet
40 mg PO BID
pioglitazone 30 mg Tablet
30 mg PO HS
loratadine 10 mg Tablet
10 mg PO HS
insulin aspart U-100 100 unit/mL (3 mL) Insulin Pen
5 unit SC HS
hydrochlorothiazide 12.5 mg Tablet
12.5 mg PO DAILY
red yeast rice 600 mg Tablet
1,200 mg PO BID
insulin degludec [Tresiba FlexTouch U-100] 100 unit/mL (3 mL) Insulin Pen
14 unit SC DAILY
Discharge Orders:
Discharge Patient (As Directed); Ordered 09/23/24
Ordered By: Deisy Bernal
Care Plan Goals
Care Plan Goals:
Problem: Readiness for enhanced knowledge related to diagnosis and treatment plan
Goal: Understand your diagnosis and treatment plan needs, including medications if applicable.
Instructions: Know your diagnosis, underlying causes and treatment plan options, including medications if applicable. Consult with your health care team to learn about your diagnosis and treatment plan, including medications if applicable.
Discharge Date and Time
Print Language: CENTRAL AFRICAN
[2024-09-23] MEDS: TYLENOL PO (14:45)
--- NOTE | 2024-09-23 16:02 | PTCARENOTE ---
pacing wire cut by CT MARILUZ. Post op dressings removed, assisted pt w shower. Pt seen by PT/OT. Discharge instructions, medication list and follow up appointments reviewed w the pt and his . Insulin orders clarified w CT MARILUZ prior to discharge.
Questions encouraged.
[2024-09-25 13:06] LABS: B.E. - POC 0.2 mmol/L; Glucose - POC 116 mg/dl (70-99); HCO3 - POC 25 mmol/L (21-28); Hematocrit - POC 27 % PCV (42-52); Hemodilution- POC Yes; Ionized Calcium - POC 1.04 mmol/L (1.15-1.33); Lactate - POC < 0.30 mmol/L (0.36-0.75); PCO2 - POC 41 mmHg (35-48); PO2 - POC 484 mmHg (83-108); Potassium - POC 4.7 mmol/L (3.5-5.1); Sodium - POC 140 mmol/L (136-145); Specimen Type - POC Arterial; pH - POC 7.39 (7.35-7.45)
== END 2024-09-23 16:07 | disposition home or self-care (01) | DRG 233 ==
LOC: CVICU 17:17
PROVIDERS: Anesthesiology; Clinical Nurse Specialist Acute Care; Internal Medicine Interventional Cardiology; Nurse Practitioner; Physician Assistant; Physician Assistant Medical; ADMITTING PHYSICIAN Internal Medicine Interventional Cardiology; ATTENDING PHYSICIAN Thoracic Surgery (Cardiothoracic Vascular Surgery); CONSULT PHYSICIAN Internal Medicine Critical Care Medicine; FAMILY PHYSICIAN Family Medicine
PROC: 4A023N7 Measurement of Cardiac Sampling and Pressure, Left Heart, Percutaneous Approach (ICD-10-PCS; 2024-09-16)
PROC: B2111ZZ Fluoroscopy of Multiple Coronary Arteries using Low Osmolar Contrast (ICD-10-PCS; 2024-09-16)
PROC: 4A033BC Measurement of Arterial Pressure, Coronary, Percutaneous Approach (ICD-10-PCS; 2024-09-16)
PROC: 5A1221Z Performance of Cardiac Output, Continuous (ICD-10-PCS; 2024-09-19)
PROC: 021209W Bypass Coronary Artery, Three Arteries from Aorta with Autologous Venous Tissue, Open Approach (ICD-10-PCS; 2024-09-19)
PROC: B24BZZ4 Ultrasonography of Heart with Aorta, Transesophageal (ICD-10-PCS; 2024-09-19)
PROC: 06BP4ZZ Excision of Right Saphenous Vein, Percutaneous Endoscopic Approach (ICD-10-PCS; 2024-09-19)
PROC: 02L70CK Occlusion of Left Atrial Appendage with Extraluminal Device, Open Approach (ICD-10-PCS; 2024-09-19)
PROC: 02100Z9 Bypass Coronary Artery, One Artery from Left Internal Mammary, Open Approach (ICD-10-PCS; 2024-09-19)
DX: I21.09 ST elevation (STEMI) myocardial infarction involving other coronary artery of anterior wall (principal); I50.21 Acute systolic (congestive) heart failure; J95.1 Acute pulmonary insufficiency following thoracic surgery; I13.0 Hypertensive heart and chronic kidney disease with heart failure and stage 1 through stage 4 chronic kidney disease, or unspecified chronic kidney disease; D62 Acute posthemorrhagic anemia; J98.11 Atelectasis; N17.9 Acute kidney failure, unspecified; I25.10 Atherosclerotic heart disease of native coronary artery without angina pectoris; E78.00 Pure hypercholesterolemia, unspecified; E11.22 Type 2 diabetes mellitus with diabetic chronic kidney disease; E66.811 Obesity, class 1; N18.31 Chronic kidney disease, stage 3a; M17.0 Bilateral primary osteoarthritis of knee; M50.123 Cervical disc disorder at C6-C7 level with radiculopathy; K59.09 Other constipation; K21.9 Gastro-esophageal reflux disease without esophagitis; I25.5 Ischemic cardiomyopathy; H91.8X3 Other specified hearing loss, bilateral; H81.03 Meniere's disease, bilateral; I44.0 Atrioventricular block, first degree; D69.59 Other secondary thrombocytopenia; E86.1 Hypovolemia; Y83.2 Surgical operation with anastomosis, bypass or graft as the cause of abnormal reaction of the patient, or of later complication, without mention of misadventure at the time of the procedure; Z68.31 Body mass index [BMI] 31.0-31.9, adult; Z79.4 Long term (current) use of insulin; Z79.899 Other long term (current) drug therapy; Z82.49 Family history of ischemic heart disease and other diseases of the circulatory system; Z85.46 Personal history of malignant neoplasm of prostate
CPT/HCPCS: 71045; 71046; 71250; 80048; 80053; 80061; 81003; 81015; 82248; 82330; 82565; 82805; 82810; 82947; 82962; 83036; 83735; 84132; 84302; 84520; 85014; 85018; 85027; 85049; 85347; 85610; 85730; 86850; 86900; 86901; 86920; 93005; 93312; 93320; 93325; 93458; 93880; 94002; 97116; 97163; 97166; 97530; C1769; C1894; J2916; P9045; P9047; Q9967